=== PATIENT | female | born 1980 | race Caucasian/White ===

== ENCOUNTER → 2024-01-05 11:31 | Outpatient (REF) | payer OTHER, SELFPAY | LOC: WDC 11:31 | PROVIDERS: ATTENDING PHYSICIAN Internal Medicine | DX: Z12.31 Encounter for screening mammogram for malignant neoplasm of breast (principal) | CPT/HCPCS: 77063; 77067 ==

== ENCOUNTER 2024-07-18 22:56 | Day surgery (SDC) | payer OTHER, SELFPAY ==
[2024-07-18 15:58] VITALS: BP 127/86
[2024-07-18 16:17] LABS: % Basophils 0.4 % (0-2); % Eosinophils 0.7 % (0-6); % Immature Granulocytes 0.3 % (0-0.5); % Lymphocytes 21.5 % (20.5-51.1); % Neutrophils 68.1 % (42.2-75.2); Absolute Basophils 0.1 10^3/uL (0-0.2); Absolute Eosinophils 0.1 10^3/uL (0-0.7); Absolute Lymphocytes 2.6 10^3/uL (1.2-3.4); Absolute Monocytes 1.1 10^3/uL (0.1-0.6); Absolute Neutrophils 8.2 10^3/uL (1.4-6.5); Hematocrit 38.9 % (37.0-47.0); Hemoglobin 12.7 g/dL (12.0-16.0); Mean Corp Hgb Conc. 32.6 g/dL (33.0-37.0); Mean Corpuscular Hgb 29.4 pg (27.0-31.0); Mean Platelet Volume 10.3 fL (7.4-10.4); Nucleated Red Blood Cells % 0 %; Platelet Count 387 10^3/uL (130-400); Red Blood Cell Count 4.32 10^6/uL (4.20-5.40); Red Cell Dist. Width 12.6 % (11.5-14.5); White Blood Cell Count 12.1 10^3/uL (4.8-10.8)
[2024-07-18 16:19] LABS: Urine Albumin 2+ (Neg - Trace); Urine Bilirubin Negative (Negative); Urine Character Slightly Cloudy (Clear); Urine Color Amber; Urine Glucose Negative (Negative); Urine Ketone Negative (Negative); Urine Leukocyte 3+ (Negative); Urine Nitrite Negative (Negative); Urine Occult Blood Negative (Negative); Urine Urobilinogen 1+ (Neg - 1+)
[2024-07-18 16:30] LABS: HCG, Serum Qualitative Screen Negative
[2024-07-18 16:33] LABS: Urine Bacteria Moderate (Negative); Urine Red Blood Cell 0-2 /HPF (0-2); Urine Squamous Cell >30 /LPF (Few); Urine White Cell 30-40 /HPF (0-5)
[2024-07-18 16:38] LABS: ALT (SGPT) 15 U/L (0-35); AST (SGOT) 21 U/L (14-36); Alkaline Phosphatase 58 U/L (38-126); Blood Urea Nitrogen 20 mg/dl (7-17); Calcium 9.6 mg/dl (8.4-10.2); Carbon Dioxide 28 mmol/L (22-30); Chloride 109 mmol/L (98-107); Glucose 96 mg/dl (70-99); Lipase 93 U/L (23-300); Potassium 4.2 mmol/L (3.5-5.1); Sodium 144 mmol/L (135-145); Total Bilirubin 0.5 mg/dl (0.2-1.3); eGFR > 60.00
[2024-07-18 17:17] VITALS: BMI 23.5
--- NOTE | 2024-07-18 17:18 | ED.GENMED ---
History of Present Illness
<ROCHELLE Xavier - Last Filed: 07/19/24 00:19>
General
Chief Complaint: Abdominal Pain
Source: patient
Exam Limitations: none
Time Seen by Provider: 07/18/24 16:34
Nursing documentation reviewed up to this point in time: agreed with
History of Present Illness
History of Present Illness:
Patient is a 44-year-old female who presents to the ER for evaluation of abdominal pain. She reports she has felt bloated for the past several days and then pain increased on , 3 days ago. She felt lower abdominal discomfort. She was
urinating slightly more than normal but denied any burning with urination. She denied any fever or chills. She reports today however the pain settled in the right lower quadrant and has gotten increasingly worse. She has nauseous with this pain
but has not vomited. She denies any back pain. She continues to deny any urinary dysuria.
Review of Systems
<ROCHELLE Xavier - Last Filed: 07/19/24 00:19>
Review of Systems
Allergies reviewed?: Yes
Other source history: family
All Other Systems: ROS reviewed and negative except as documented in HPI and ROS
Constitutional: Reports no symptoms; Denies fever, fatigue or chills
Respiratory: Reports no symptoms
Cardiac: Reports no symptoms
ABD/GI: Reports nausea; Denies vomiting, diarrhea or constipated
: Reports frequency; Denies flank pain, urgency or discharge
Musculoskeletal: Reports no symptoms; Denies back pain
Skin: Reports no symptoms
Neurological: Reports no symptoms
Psychiatric: Reports no symptoms
Phy Exam
<ROCHELLE Xavier - Last Filed: 07/19/24 00:19>
General Physical Exam
General Presentation: no apparent distress
General age: appears stated age
General Skin: warm and dry
General Habitus: normal
General Mental: alert
General Hydration: appears well hydrated
Neurological Exam
Neurological Exam: alert and oriented x3
Musculoskeletal Exam
Musculoskeletal Exam: full ROM
Skin Exam
Skin Exam: normal color and warm/dry
Psychiatric Exam
Psychiatric Exam: normal mood/affect
Course
<ROCHELLE Xavier - Last Filed: 07/19/24 00:19>
Orders/Labs/Results
Orders:
Orders
07/18/24 16:02
Test Result ONCE
07/18/24 16:09
CA 125 Urgent
Comment: ADD ON
Complete Blood Count/With Diff Urgent
Comprehensive Metabolic Panel Urgent
HCG, Serum Qualitative Screen Urgent
Lipase Urgent
Urinalysis Reflex To Culture Urgent
Date Specimen was Collected: 07/18/24
Time Specimen was Collected: 16:02
Urine Microscopic Reflex Cult Urgent
Urine Culture Urgent
AMAN Source: U
Specimen Description:
Date Specimen was Collected: 07/18/24
Time Specimen was Collected: 16:02
07/18/24 17:13
0.9% Sodium Chloride 1000 ml [Nss] 1,000 ml IV BOLUS
07/18/24 17:14
Ketorolac [Toradol] 15 mg IV NOW STA
Ondansetron Injectable [Zofran] 4 mg IV NOW STA
US Pelvis Only (non-obstetric) Urgent
Comment:
Reason For Exam: rlq pain
07/18/24 17:18
CT Abd/pel W Iv And Oral Contr Urgent
Comment:
Reason For Exam: rlq pain
Iohexol [Omnipaque] See Protocol PO NOW STA
07/18/24 20:34
CefTRIAXone [Rocephin] 1,000 mg IV NOW STA
07/18/24 20:58
Morphine Sulfate 4 mg IV NOW STA
07/18/24 21:12
Sterile Water [Sterile Water For Injection] 10 ml .ROUTE .STK-MED ONE
07/18/24 21:31
Consult SENIOR ASSET MANAGER [SENIOR ASSET MANAGER CONSULT] Urgent
Consulting Provider: Tamie Hill
Was physician already notified: Yes
Reason for consult: pelvic mass
07/18/24 22:00
Flush (0.9% Sodium Chloride) [Flush (Nss)] See Dose Instructions IV PER PROTOCOL
07/18/24 22:06
Add On- LAB Urgent
Tests Added?: ca-125
07/18/24 22:22
Admit/Transfer Patient As Directed
Co-Sign Provider:
Level of Care: Observation services
Assign to:: Medical/Surgical
Physician / Group: Pankaj
Diagnosis: Adnexel Mass
07/18/24 22:23
PRN Pain Medication Management As Directed
May give lesser potent ordered pain med per pt: Yes
preference::
Protocol:: Medication orders for pain may be administered in a
manner that supports deferring to patient preference
when the pt is:
- Requesting an ordered lesser potent pain medication.
Least to most potent pain medications are defined
as: acetaminophen < NSAID < tramadol < opioids
(morphine, oxycodone, hydromorphone).
- Requesting a lesser dose of the same medication IF
ORDERED.
- Requesting a less intrusive route of administration
if both routes are prescribed by the provider (PO <
IV).
07/18/24 22:24
Code Status As Directed
Resuscitation Status: Full Code
Abnormal Lab Results
07/18/24
16:09
WBC 12.1 H 10^3/uL
(4.8-10.8)
MCHC 32.6 L g/dL
(33.0-37.0)
Absolute Neuts (auto) 8.2 H 10^3/uL
(1.4-6.5)
Absolute Monos (auto) 1.1 H 10^3/uL
(0.1-0.6)
Chloride 109 H mmol/L
(98-107)
BUN 20 H mg/dl
(7-17)
Leukocyte Esterase Rfl 3+ A
(Negative)
Urine WBC (Reflex) 30-40 A /HPF
(0-5)
Urine Bacteria (Reflex) Moderate A
(Negative)
Urine Albumin (Reflex) 2+ A
(Neg - Trace)
07/18/24 16:09
07/18/24 16:09
Vital Signs
Initial and Last Documented VS:
Initial Vital Signs
Temp Pulse Resp BP Pulse Ox
98.8 F 82 18 127/86 100
07/18/24 15:58 07/18/24 15:58 07/18/24 15:58 07/18/24 15:58 07/18/24 15:58
Last Documented Vital Signs
Temp Pulse Resp BP Pulse Ox
98.8 F 82 18 117/71 99
07/18/24 15:58 07/18/24 15:58 07/18/24 15:58 07/18/24 23:00 07/18/24 23:15
Buffing Wheel Former Machine consulted with Physician
Buffing Wheel Former Machine consulted with physician?: Yes
Name of Physician Consulted: swati
<Saulo Edge MD - Last Filed: 07/18/24 22:47>
Orders/Labs/Results
Orders:
Orders
07/18/24 16:02
Test Result ONCE
07/18/24 16:09
CA 125 Urgent
Comment: ADD ON
Complete Blood Count/With Diff Urgent
Comprehensive Metabolic Panel Urgent
HCG, Serum Qualitative Screen Urgent
Lipase Urgent
Urinalysis Reflex To Culture Urgent
Date Specimen was Collected: 07/18/24
Time Specimen was Collected: 16:02
Urine Microscopic Reflex Cult Urgent
Urine Culture Urgent
AMAN Source: U
Specimen Description:
Date Specimen was Collected: 07/18/24
Time Specimen was Collected: 16:02
07/18/24 17:13
0.9% Sodium Chloride 1000 ml [Nss] 1,000 ml IV BOLUS
07/18/24 17:14
Ketorolac [Toradol] 15 mg IV NOW STA
Ondansetron Injectable [Zofran] 4 mg IV NOW STA
US Pelvis Only (non-obstetric) Urgent
Comment:
Reason For Exam: rlq pain
07/18/24 17:18
CT Abd/pel W Iv And Oral Contr Urgent
Comment:
Reason For Exam: rlq pain
Iohexol [Omnipaque] See Protocol PO NOW STA
07/18/24 20:34
CefTRIAXone [Rocephin] 1,000 mg IV NOW STA
07/18/24 20:58
Morphine Sulfate 4 mg IV NOW STA
07/18/24 21:12
Sterile Water [Sterile Water For Injection] 10 ml .ROUTE .STK-MED ONE
07/18/24 21:31
Consult SENIOR ASSET MANAGER [SENIOR ASSET MANAGER CONSULT] Urgent
Consulting Provider: Tamie Hill
Was physician already notified: Yes
Reason for consult: pelvic mass
07/18/24 22:00
Flush (0.9% Sodium Chloride) [Flush (Nss)] See Dose Instructions IV PER PROTOCOL
07/18/24 22:06
Add On- LAB Urgent
Tests Added?: ca-125
07/18/24 22:22
Admit/Transfer Patient As Directed
Co-Sign Provider:
Level of Care: Observation services
Assign to:: Medical/Surgical
Physician / Group: Pankaj
Diagnosis: Adnexel Mass
07/18/24 22:23
PRN Pain Medication Management As Directed
May give lesser potent ordered pain med per pt: Yes
preference::
Protocol:: Medication orders for pain may be administered in a
manner that supports deferring to patient preference
when the pt is:
- Requesting an ordered lesser potent pain medication.
Least to most potent pain medications are defined
as: acetaminophen < NSAID < tramadol < opioids
(morphine, oxycodone, hydromorphone).
- Requesting a lesser dose of the same medication IF
ORDERED.
- Requesting a less intrusive route of administration
if both routes are prescribed by the provider (PO <
IV).
07/18/24 22:24
Code Status As Directed
Resuscitation Status: Full Code
Abnormal Lab Results
07/18/24
16:09
WBC 12.1 H 10^3/uL
(4.8-10.8)
MCHC 32.6 L g/dL
(33.0-37.0)
Absolute Neuts (auto) 8.2 H 10^3/uL
(1.4-6.5)
Absolute Monos (auto) 1.1 H 10^3/uL
(0.1-0.6)
Chloride 109 H mmol/L
(98-107)
BUN 20 H mg/dl
(7-17)
Leukocyte Esterase Rfl 3+ A
(Negative)
Urine WBC (Reflex) 30-40 A /HPF
(0-5)
Urine Bacteria (Reflex) Moderate A
(Negative)
Urine Albumin (Reflex) 2+ A
(Neg - Trace)
07/18/24 16:09
07/18/24 16:09
Vital Signs
Initial and Last Documented VS:
Initial Vital Signs
Temp Pulse Resp BP Pulse Ox
98.8 F 82 18 127/86 100
07/18/24 15:58 07/18/24 15:58 07/18/24 15:58 07/18/24 15:58 07/18/24 15:58
Last Documented Vital Signs
Temp Pulse Resp BP Pulse Ox
98.8 F 82 18 117/71 99
07/18/24 15:58 07/18/24 15:58 07/18/24 15:58 07/18/24 23:00 07/18/24 23:15
<ROCHELLE Xavier - Last Filed: 07/19/24 00:19>
MDM/Problems Addressed
Differential Diagnosis Includes:
Not limited to UTI, ovarian cyst, less likely ovarian torsion, appendicitis
MDM/Problems Addressed:
As documented patient is a 44-year female who complained of lower abdominal discomfort for the past several days which started on the right lower quadrant. Patient presents with pain in the right lower quadrant denies any fever or chills. On exam
she is tender in the right lower quadrant. She denies any UTI symptoms where she does have obvious 30-40 white blood cells in her urine. She denies any fevers or white count minimally elevated. Her kidney function and LFTs are normal. Ultrasound
of pelvis done and shows a solid-appearing mass in the right adnexa most likely of right ovarian origin both benign and malignant etiologies are possible there is small free fluid in the cul-de-sac MRI is recommended for additional evaluation; in
addition a CAT scan was ordered to rule out appendicitis which does show mild hepatomegaly and small volume ascites some of which is mildly complex again there is soft tissue density within the soft tissues of the true pelvis bilaterally right
greater than left which corresponds to finding ultrasound. This could represent bilateral ovarian masses. Case reviewed with ED physician will recommend admission for further evaluation, MRI and will order antibiotics for UTI
<ROCHELLE Xavier - Last Filed: 07/19/24 00:19>
*Radiology
Radiology exam reviewed: radiology read reviewed
*Pulse Oximetry
Patient hypoxic: no
*Critical Care Note
Total Time (30-74mins, 75-104mins- exclusive of procedures): Not Applicable
<ROCHELLE Xavier - Last Filed: 07/19/24 00:19>
Patient Management
Discussion with other providers: Loop Drier Operator (WASHING MACHINE MECHANIC DR Hill )
ED Attending Note
<ROCHELLE Xavier - Last Filed: 07/19/24 00:19>
-
Portions of this chart may have been created with voice recognition software.� Occasional wrong word or��sound alike� substitutions may have occurred due to the inherent limitations of voice recognition software.
<Saulo Edge MD - Last Filed: 07/18/24 22:47>
ED Attending Note
Patient seen and examined by attending physician: Yes
ED Attending Note:
I have seen and evaluated the patient with a [id number] encounter. I have spoken to the advance practicer provider and involved in the medical history, the physical exam, medical decision making.
Evaluation and management service: agree unless noted differently below.
Results interpretation: agree unless noted differently below.
Focused HPI: 44-year-old female with history as noted presents for evaluation of abdominal pain. Patient reports onset of symptoms 3 days ago they have been constant since that time and generally worsening. She reports initially some mild bloating
sensation now more distinct pain in the right lower quadrant. Associate with nausea no vomiting. She chronically has mild constipation but no acute change in bowel movements. She denies any urinary symptoms. Denies any vaginal bleeding. Denies
fevers or chills. She denies prior abdominal surgeries.
Physical exam: Awake alert not in distress. Vital signs normal. Abdomen soft, tender to palpation focally in the right lower quadrant.
Medical Decision Makin-year-old female presents for evaluation of right lower quadrant abdominal pain. Labs were significant for leukocytosis 12.1. CMP no clinically significant abnormality. hCG negative. Urinalysis appears contaminated and
in the absence of urinary symptoms lower suspicion for UTI. Pelvic ultrasound and CT abdomen pelvis performed�she has soft tissue density in the pelvis bilaterally right greater than left which could represent bilateral ovarian masses; appendix not
definitively visualized. Will plan to admit for further diagnostic workup�MRI recommended by radiology.
Discharge Plan
Departure
Patient Disposition: Admit
Date of Disposition: 07/18/24
Time of Disposition: 20:41
Admit to: Med/Surg
Admit to doctor: hospitalist
Presentation/result/management discussed w/ accepting MD/DO: Hospitalist
Patient with high blood pressure during this ER visit?: No
Condition: Fair
Covid-19: Not Applicable
Discharge Problem:
ovarian mass, UTI (urinary tract infection), Abdominal pain
Interventions
Interventions:
*Risk Screen - Suicide Last Done: 07/18/24 23:21
*General Assessment Last Done: 07/18/24 16:00
*Neglect/Abuse Screening Last Done: 07/18/24 23:21
*ED- Fall Risk Assessment Last Done: 07/18/24 17:36
*ED COVID-19 Vaccine History Last Done: 07/18/24 16:00
*Nursing Disposition Last Done: 07/19/24 00:19
AM-Ytffbm-Hddszzeqwq Assessment Last Done: 07/18/24 19:45
Discharge Date and Time
Discharge Date/Time: 07/19/24 00:19
[2024-07-18] MEDS: TORADOL 15 MG IV (17:26)
[2024-07-18] MEDS: ZOFRAN 4 MG IV (17:26)
[2024-07-18] MEDS: NSS 1000 IV (17:27)
[2024-07-18] MEDS: OMNIPAQUE 50 ML PO (17:31)
[2024-07-18 20:02] VITALS: BP 106/68
[2024-07-18] MEDS: MORPHINE SULFATE 4 MG IV (21:05)
[2024-07-18] MEDS: ROCEPHIN 1000 MG IV (21:07)
[2024-07-18 21:17] VITALS: BP 107/68
[2024-07-18 22:00] VITALS: BP 117/75
--- NOTE | 2024-07-18 22:27 | HPS.HSE ---
Addendum entered and electronically signed by Satnam Lira DO 07/18/24 23:39:
Patient seen and examined independently. Agree with findings and plan as set forth by Rosalinda Sanches PA-C.
Patient is a 44y F with PMH significant for scoliosis s/p lumbar fusion who presents to ED complaining of lower abdominal pain x 3-4 days. Patient states that pain initially started in the umbilical area. It has increased in intensity since
that time and migrated now to the RLQ area. Pateint reports waking in sweats and chills each of the past 3 nights. No noted fever. No N/V/D. No urinary complaints. Her menses have been regular. No vaginal discharge.
Ass:
RLQ Abdominal Pain
R Ovarian Lesion
Anxiety / Depression
Scoliosis s/p Lumbar Fusion
Plan:
Observe overnight for further evaluation.
History and exam are highly suggestive of appendicitis and note that appendix is not visualized on US or CT.
Will cover with IV abx for now.
NPO, pain control / supportive care.
CT / US aleman show R > L ovarian abnormality. R seems c/w solid / soft tissue density - ? dermoid.
Appreciate HUMAN SERVICE WORKER input.
MRI in AM for further evaluation.
Surgery consult if appendicitis suspected / confirmed based on MRI results.
Original Note:
Family Physician
-
Family Physician: Carlita Guadarrama
Chief Complaint
-
Abdominal Pain
History of Present Illness
Patient is a 44 y/o female past medical history of anxiety who presents with abdominal pain and bloating. Patient reports worsening abdominal pain over the last several days which was periumbilical initially but now localizing to the right lower
quadrant. Patient notes lower abdominal bloating. She reports worsening nausea but no vomiting, and denies diarrhea. She denies recorded fevers, but admits to night sweats/chills the past two days. She denies dysuria. She denies abnormal vaginal
discharge.
Medical History
Past Medical History
Past Medical History: Reports Other
Additional Past Medical History:
Anxiety
Scoliosis
Past Surgical History: Reports Other
Additional Past Surgical History:
L1-S1 Anterior / Posterior Fusion
Social History
Tobacco: Non-smoker
Alcohol: Occasional
Family History
Family History: Not pertinent
Allergies / Home Medications
Allergies reflects when Allergies were last updated in [facility].
Home Medications with original date entered in [facility]
Allergy/Medication List:
Allergies
Allergy/AdvReac Type Severity Reaction Status Date / Time
No Known Allergies Allergy Unverified 07/18/24 15:59
Home Medications
bupropion HCl 150 mg 24 hr tablet, extended release (Wellbutrin XL) 300 mg PO DAILY 07/18/24
Review of Systems
-
History Source: Patient
A 12 point ROS was completed and negative except as noted: Yes
Constitutional: Reports Night Sweats and Chills; Denies Fever
Respiratory: Denies Cough or Trouble Breathing
Cardiac: Denies Chest Pain or Palpitations
Abdomen/GI: Reports Abdominal Pain, Nausea and Constipated; Denies Vomiting or Diarrhea
: Denies Dysuria
Physical Exam
Vital Signs
Vital Signs
Temp Pulse Resp BP Pulse Ox
98.8 F 82 18 127/86 100
07/18/24 15:58 07/18/24 15:58 07/18/24 15:58 07/18/24 15:58 07/18/24 15:58
Physical Exam
General: Comfortable and Conversant
HEENT: Anicteric and Moist mucous membranes
Respiratory: Clear and Non Labored Respirations
Cardiac: S1/S2 and Regular Rhythm
GI: Soft, Tender (Right lower quadrant) and Distended (Notable fullness on palpation of the bilateral lower quadrants, right greater than left)
Rectal: Deferred by Provider
Genito-urinary: Clear Urine
Musculoskeletal: No Clubbing and No Cyanosis
Skin: Warm and Dry
Neuro: Awake, Alert, Oriented and Nonfocal/grossly intact
Psych: Calm
Laboratory Results
-
07/18/24 16:09
07/18/24 16:09
Laboratory Results
Total Bilirubin 0.5 mg/dl (0.2-1.3) 07/18/24 16:09
AST 21 U/L (14-36) 07/18/24 16:09
ALT 15 U/L (0-35) 07/18/24 16:09
Alkaline Phosphatase 58 U/L (38-126) 07/18/24 16:09
Lipase 93 U/L (23-300) 07/18/24 16:09
Data Reviewed
-
CT Scan: Report Reviewed by me
Ultrasound: Report Reviewed by me
Lab Data: Labs Reviewed by me
Impression/Plan
-
Abdominal Pain
-History raises concern for possible appendicitis
-CT scan and Abd US reveal right adnexal mass, but appendix was not identified on the CT scan
-Continue Unasyn given infectious symptoms
-Consult Gynecology
-Check Pelvic MRI
-Check CA-125
Anxiety
-Continue Wellbutrin
DVT proph: SCDs
Code Status: Full Code
[2024-07-18 23:00] VITALS: BP 117/71
--- NOTE | 2024-07-18 23:31 | CON.MD ---
Consultation - Medical
-
44 yo comes into ER for abd pain. Started on Friday. Started at umbilicus andtraveled to RLQ and R hip. No temp at home but has been having night sweats and chills last few nights. WBC = 12.1. LMP 06/28/24 BC = vasectomy - preg test in
ER negative. No VB - no vag d/c - no dysuria.
Imaging shows a RLQ mass poss ovary but cannot r/o appy issue - MRI planned and Ca-125 pending.
All NKDA
Meds - Welbutrin
POBH - - NVD x 2 - youngest is 10 - no recent pelvic imaging
P JAVASCRIPT PROGRAMMER H - no abnl pap
PE - 98.8 - 82 - 18 - 127/86
Lungs - clear
CV - RRR
Back noCVAT
Abd - soft + RLQ tenderness + BS - no rebound or gurading
Pelvic - EG - WNL
Cervix - palp nomral
BME - RV uterus - no CMT - pt states always has been RV
Adnexa - + tender to palp on Right - cannot palp ovaries due ot RV uterus
Labs - HCG neg - Ca125 pending - wbc mildly elevae at 12.1
u/s and CT scan show 'soft tissue' density in RLQ - ovary vs appy
Asses - RLQ mass ovary vs appy
Plan MRI tomorrow
CA-125 pending
IV antibiotics per hospitalist
IF adnexal mass, pt may be able to be d/c ad f/u with her JAVASCRIPT PROGRAMMER at [facility] - [facility]
-
See full dictated report
[2024-07-19 00:25] VITALS: BP 105/64; BMI 23.5
[2024-07-19] MEDS: UNASYN IV ×2 (01:10→06:03)
[2024-07-19] MEDS: D5/0.9% SODIUM CHLORIDE IV ×2 (01:47→12:50)
[2024-07-19] MEDS: TORADOL 15 MG IV ×2 (01:48→11:14)
[2024-07-19] MEDS: D5/0.9% SODIUM CHLORIDE 1000 IV (01:57)
--- NOTE | 2024-07-19 06:01 | W.PN.GYN.DG ---
Today's Communication / Plan
-
Await ca-125 and MRI
Pt SHANK MAKER is a [facility] Jason Gerard
If MRI suspicious for Dermoid or other SHANK MAKER source, I will contact her SHANK MAKER for planning and f/u
Assessment / Plan
-
Assessment: RLQ pain
Imaging R adnexal mass - poss dermoid or source or poss appy issue
Plan:
Await ca-125 and MRI
Pt SHANK MAKER is a [facility] Jason Gerard
If MRI suspicious for Dermoid or other SHANK MAKER source, I will contact her SHANK MAKER for planning and f/u
Subjective / Objective Data
Subjective Data
Pt cont to have RLQ pain - not better - not worse - pt can tell when pain meds wear off
Objective Data
Vital Signs
Temp Pulse Resp BP Pulse Ox
98.3 F 86 16 105/64 98
07/19/24 00:25 07/19/24 00:25 07/19/24 00:25 07/19/24 00:25 07/19/24 00:25
Physical Exam
-
Abdomen: Soft and Tender (+ RLQ tenderness to palp - no rebound - no guarding)
Data Reviewed
-
Urine Color Deana 07/18/24 16:09
Urine Clarity Slightly cloudy (Clear) 07/18/24 16:09
Urine pH 6.0 (5.0-9.0) 07/18/24 16:09
Ur Specific Pe Ell 1.030 (<1.030) 07/18/24 16:09
Urine Ketones Negative (Negative) 07/18/24 16:09
Urine Bilirubin Negative (Negative) 07/18/24 16:09
Urine Urobilinogen 1+ (Neg - 1+) 07/18/24 16:09
[2024-07-19] MEDS: MORPHINE SULFATE 2 MG IV (06:06)
[2024-07-19 08:11] LABS: Hematocrit 31.7 % (37.0-47.0); Hemoglobin 10.3 g/dL (12.0-16.0); Mean Corp Hgb Conc. 32.5 g/dL (33.0-37.0); Mean Corpuscular Hgb 29.9 pg (27.0-31.0); Mean Corpuscular Volume 92.2 fL (81.0-99.0); Mean Platelet Volume 10.8 fL (7.4-10.4); Platelet Count 287 10^3/uL (130-400); Red Blood Cell Count 3.44 10^6/uL (4.20-5.40); White Blood Cell Count 8.5 10^3/uL (4.8-10.8)
[2024-07-19 08:12] LABS: Blood Urea Nitrogen 17 mg/dl (7-17); Calcium 8.1 mg/dl (8.4-10.2); Carbon Dioxide 24 mmol/L (22-30); Chloride 111 mmol/L (98-107); Estimated Creatinine Clearance 83 ml/min; Glucose 91 mg/dl (70-99); Potassium 4.1 mmol/L (3.5-5.1); Sodium 143 mmol/L (135-145); eGFR > 60.00
--- NOTE | 2024-07-19 08:21 | W.PN.HOSP.TC ---
Today's Communication/Plan
-
Oncology LEAD GENERATOR consult. Pain control
Assessment / Plan
Assessment / Plan
Physical exam:
General: Acutely ill
HEENT: Normocephalic, Atraumatic and Moist Mucous Membranes
Respiratory: Clear to Auscultation; Negative Wheezes, Rales or Rhonchi
Cardiac: Regular Rhythm and S1/S2
GI: Soft, very tender diffusely and mainly right lower quadrant and distended
Musculoskeletal: No Clubbing, No Cyanosis and No Edema
Neuro: Awake, Alert and Oriented, no neurological deficits
Psych: Anxious
A/P:
Abdominal pain due to ovarian masses (right ovarian mass and hemorrhagic cyst in the left ovary), peritoneal carcinomatosis, and ascites, likely malignant:
Reviewed pelvic MRI findings
Start clear liquid diet
Stop IV fluids and IV antibiotics
Adjust pain medications-add oral oxycodone, continue IV morphine, and add bowel regimen
LEAD GENERATOR oncology consulted-discussed via [place] text today
Left message to her outpatient LEAD GENERATOR but no call back yet.
Oncology consult as requested by LEAD GENERATOR-discussed with oncology today
Ca-125 pending
Discussed with at bedside
Leukocytosis:
Likely reactive
Anemia:
Monitor hemoglobin closely
Anxiety
Continue Wellbutrin
DVT prophylaxis:
SCDs
Code Status:
Full Code
Total time spent on today's encounter was 52 minutes which included time spent in counseling the patient/family regarding diagnosis and treatment plan as listed above, goals of care, and symptom management. Case was discussed with nursing staff,
specialists, and care coordinators/case management. All labs and imaging personally reviewed by me. Remainder the time spent in detailed review of previous records, lab data, imaging, and other medical provider documentation.
Anticipated Discharge: 24 - 48 hours
Subjective/Interval History
-
Date of Service: July 19, 2024
Patient still having significant right lower quadrant abdominal pain. Afebrile.
Objective Data
-
Labs:
Laboratory Results
07/19/24
06:40
WBC 8.5
Hgb 10.3 L
Hct 31.7 L
Plt Count 287 D
Sodium 143
Potassium 4.1
Chloride 111 H
Carbon Dioxide 24
BUN 17
Creatinine 0.8
Glucose 91
Calcium 8.1 L D
Vital Signs:
Vital Signs
Temp Pulse Resp BP Pulse Ox
98.3 F 86 16 105/64 98
07/19/24 00:25 07/19/24 00:25 07/19/24 00:25 07/19/24 00:25 07/19/24 00:25
[2024-07-19 08:45] VITALS: BP 105/69
--- NOTE | 2024-07-19 10:30 | CM ---
Patient off the flr, spoke w/ spouse, initial assessment completed. Patient is a 44 y/o female past medical history of anxiety who presents with abdominal pain and bloating.
Patient resides w/ spouse and 2 sons [place]- 2 steps to enter. Independent w/ walking and ADLs, no DME identified. No SNF/HC hx reported. OP therapy in the past.
Address, point of contact and insurance verified
PCP: Carlita Guadarrama
[facility]
Patient is currently admitted obs. [facility] form verbally reviewed w/ spouse, copy provided, copy in chart
Plan: Home, no needs
[2024-07-19] MEDS: ZOFRAN 4 MG IV ×2 (11:14→23:28)
[2024-07-19] MEDS: WELLBUTRIN XL (24 hour extended release) 300 MG PO (11:14)
[2024-07-19] MEDS: TYLENOL 650 MG PO (14:44)
[2024-07-19 15:16] VITALS: BP 114/74
--- NOTE | 2024-07-19 16:57 | W.CON.GYNONC ---
Chief Complaint
-
lower abdominal pain, Pelvic masses
History of Present Illness
The patient is a 44-year-old woman, 3, para 2, comes into the emergency room for abdominal pain. This pain started on Friday at her umbilicus. Over time it traveled to her right lower quadrant and right hip. She states she has had no
temperature at home. However, she has been having night sweats the last couple of nights with chills in the middle of the night. Her last menstrual period was 06/29/2024 and was normal. Her
control is vasectomy. She is having no problems with vaginal bleeding, vaginal discharge, or dysuria. She was seen by her Night Manager in May 2024.had normal exam. she and her were at [place] but she had pain and nausea and her
brought her back here to [place], where she had her car at [facility].
Her urine test in the emergency room today was negative.
Her imaging shows a 10 x 5 x 5 cm uterus with an 8 mm endometrial stripe. There is a 2 cm posterior fibroid. The left ovary is normal measuring 5 x 3 x 3 cm with positive flow. The right ovary measures 8 x 6 x 5 cm with a possible solid area mass
in the ovary. There is positive flow to that ovary also. Benign versus malignant mass was discussed. Also, possibility of dermoid was mentioned in the ultrasound report. MRI was recommended.
CT scan A/P and MRI pelvis is done, results are noted below
CA 125 =400
HCG negative
PAST MEDICAL HISTORY: Anxiety.post cardiomyopathy
PAST SURGICAL HISTORY:
1. Tonsillectomy.
2. Anterior-posterior spinal fusion for scoliosis.(14 hr procedure at [facility])
ALLERGIES: None.
MEDICATIONS: Wellbutrin.
SOCIAL HISTORY: Patient is a nonsmoker. 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
FAMILY HISTORY: No WIRE WEB WORKER cancer, but history of breast cancer in her maternal aunt.
PAST OB HISTORY: 3, para 2, with 2 previous normal vaginal deliveries.
PAST WIRE WEB WORKER HISTORY: No history of abnormal Pap smears and control is vasectomy.
Medical History
Allergies
Allergies reflect when allergies were last updated in [facility].
No Known Allergies Allergy (Unverified 07/18/24 15:59)
Physical Exam
Vital Signs / I&O
Vitals
Temp Pulse Resp BP Pulse Ox
98.7 F 82 16 114/74 97
07/19/24 15:16 07/19/24 15:16 07/19/24 15:16 07/19/24 15:16 07/19/24 15:16
Physical Exam
General: Well Developed, Well Nourished and No Apparent Distress
HEENT: Normocephalic and Moist Mucous Membranes
Respiratory: Clear, Wheezes and Non Labored Respirations
Cardiac: S1/S2 and Regular Rhythm
Breast: Deferred by me
GI: Soft, Non Distended, Normal Bowel Sounds and Tender (lower abdomen, R greater than left)
Genito-urinary: No Costovertebral Tend
External Genitalia: Normal Urethra
Vagina: Normal Mucosa
Cervix: Normal and No Lesion Seen
Uterus: Normal
Adnexa: Abnormal and Other (bilateral adnexal masses present, )
Rectal: Normal Mucosa and Other (nodule appreciated in posterior cul de sac)
Musculoskeletal: No Clubbing, No Cyanosis and No Edema
Hematologic/Lymphatic: No Lymphadenopathy
Psych: Calm and Intact Judgement
Results
-
07/19/24 06:40
07/19/24 06:40
Diagnostic Imaging Report
SignedOrder #:[id number]
Exams: CT Abd/pel W Iv And Oral Contr
PROCEDURES: CT Abd/pel W Iv And Oral Contr
CLINICAL INDICATION: rlq pain
TECHNIQUE: Axial images through the abdomen and pelvis following oral contrast and intravenous nonionic contrast administration with coronal and sagittal reformations. Automated dose reduction technique was utilized for this exam.
COMPARISON: June 07, 2009. Pelvic ultrasound same day.
FINDINGS:
Lower Chest: Some mild dependent subsegmental atelectasis, right lung base greater than left. No pleural effusion.
Abdomen:
Liver: Enlarged at 20 cm, homogeneous.
Bile Ducts: Within normal limits.
Gallbladder: Within normal limits.
Pancreas: Within normal limits.
Spleen: Within normal limits.
Adrenals: Within normal limits.
Kidneys/Ureters: Symmetric excretion.
Bowel: Limited without oral contrast opacification of entire large bowel and also limited by marked paucity of intra-abdominal/pelvic fat. Moderate volume colonic stool no intestinal obstruction. Although the appendix is not discretely identified,
portion of the posterior right lower quadrant limited by some soft tissue density in the right true pelvis.
Peritoneum: No free air. Small volume free fluid, portion of which is slightly high attenuation density.
True pelvis: Heterogeneous predominantly low-attenuation 'soft tissue' density in the right true pelvis greater than left likely corresponding with the heterogeneous predominantly solid-appearing density seen on concurrent pelvic ultrasound. Seen on
image 67 series 301 there is a simple appearing cyst in the left true pelvis likely ovarian. Small volume dependent free fluid.
Bladder: Incompletely opacified and incompletely distended, limited, likely with mild relative diffuse wall thickening due to underdistention.
Vessels and retroperitoneum: Abdominal aorta normal in caliber. Retroperitoneum significantly obscured by beam hardening artifact from metal hardware throughout the lumbar spine.
Bones: Marked beam hardening artifact from extensive metal hardware throughout the lumbar spine.
IMPRESSION:
Mild hepatomegaly.
Small volume ascites, some of which is mildly complex.
Marked heterogeneous predominantly 'soft tissue' density within the soft tissues of the true pelvis bilaterally, right greater than left at least a portion of which likely corresponds with findings on concurrent Pelvic ultrasound which could
represent bilateral ovarian masses. Heterogeneous soft tissue density extends on the right into the right lower quadrant. Unfortunately, as the appendix is not discretely identified, involvement of the appendix cannot be excluded and, therefore,
acute appendicitis cannot be excluded. 1.7 cm simple cyst in the left true pelvis.

Magnetic Resonance Imaging Rpt
SignedOrder #:[id number]
Exams: MR Pelvis W/o & With Contrast
MR Pelvis W/o  With Contrast: 07/19/2024 10:00 AM
INDICATION: 44 years old Female. abdominal pain, adnexel mass.
COMPARISON: CT abdomen/pelvis and ultrasound pelvis 07/18/2024.
TECHNIQUE: Multiplanar multisequence MR imaging of the pelvis was performed before and after intravenous administration of gadolinium contrast agent.
FINDINGS:
UTERUS:
Orientation: Anteverted.
Masses: None.
Endometrium: mm.
Junctional zone: Unremarkable.
Cervix: There are incidental nabothian cysts present.
RIGHT OVARY: Heterogeneous avidly enhancing mass measuring approximately 5.9 x 6.5 x 5.6 cm.
LEFT OVARY: Heterogeneous avidly enhancing mass measuring approximately 3.2 x 3.0 x 2.5 cm. 2.7 cm hemorrhagic cyst.
There is marked thickening and enhancement of the peritoneal lining within the posterior pelvis. Additional probable peritoneal implant in the right lower abdominal quadrant paracolic gutter region measuring 2.7 x 2.0 cm. Small peritoneal implants
in the left lower quadrant as well.
FREE FLUID: Moderate volume ascites in the pelvis and lower abdomen, progressed.
URINARY BLADDER: Unremarkable.
BOWEL: Visualized bowel unremarkable.
LYMPH NODES: Unremarkable.
MUSCULOSKELETAL: No suspicious osseous abnormality.
IMPRESSION:
Enhancing bilateral ovarian masses as described, highly suspicious for malignancy such as metastases or bilateral primary ovarian tumors such as serous or mucinous cystadenocarcinomas.
Findings suggestive of adjacent peritoneal carcinomatosis.
Moderate volume probable malignant ascites in the pelvis and lower abdomen.
Electronically signed by Gonzalo Erica, 07/19/2024 11:12 AM
Impression / Plan
-
44 yo woman with lower abdominal pain, bilateral complex adnexal masses, peritoneal implants in pelvis, very mild ascites, inflammatory changes noted in abdomen. elevated CA 125. appendicitis cannot be ruled out but there is suspicion for
carcinomatosis/ovary ca.
-get cardiology eval, chceck ECHO pre op, has a post cardiomyopathy history
-I reached out to Dr brown, he advised to start Zosyn, will see her and assess for appy even though we doubt it
-I think she has bilateral complex masses of ovary, i am concerned about neoplastic changes, I will proposes a laparoscopy with sampling of ascites, and examination and assessment of abdomen to decide next steps. she understands algorithm for
treatment of ovary cancer to include assessment for primary debulking surgery vs NCT followeed by interval debulking surgery.
-she understands procedure would be diagnostic, and we will need to postpone actual treatment to later time if primary surgery is identified to be the right approach
start Zosyn, for possible infection of appendix (Dr Brown recommended)
added to OR schedule in am
NPO after MN
additional tumor markers added
Kirit Paul MD
Night Manager Oncology
[facility]
[phone]
[2024-07-19 18:20] LABS: CA 125 400 U/mL (0-35)
[2024-07-19] MEDS: COLACE 100 MG PO (19:47)
[2024-07-19] MEDS: ROXICODONE 5 MG PO (19:47)
[2024-07-19] MEDS: ZOSYN 50 IV (23:23)
[2024-07-19 23:47] VITALS: BP 101/65
[2024-07-20] VITALS (14 sets, daily range): BP systolic 94–121; BP diastolic 59–82
[2024-07-20] MEDS: ZOSYN 50 IV ×2 (06:01→12:11)
[2024-07-20] MEDS: ZOFRAN 4 MG IV ×2 (06:06→12:12)
[2024-07-20] MEDS: ROXICODONE 5 MG PO ×2 (06:06→12:11)
--- NOTE | 2024-07-20 06:43 | W.PN.GYN.DG ---
Today's Communication / Plan
-
Pt had genetic screening done via [facility]
Will try to get those results - she has not gotten them yet - was supposed to meet on
Assessment / Plan
-
Assessment:
Pelvic mass with ascites - poss ovarian primary
LPS planned
Plan:
Pt had genetic screening done via [facility]
Will try to get those results - she has not gotten them yet - was supposed to meet on
Subjective / Objective Data
Subjective Data
Pt preparing for LPS today - NPO - unsure of timing for surgery
Objective Data
Vital Signs
Temp Pulse Resp BP Pulse Ox
98.7 F 87 18 101/65 100
07/19/24 23:47 07/19/24 23:47 07/19/24 23:47 07/19/24 23:47 07/19/24 23:47
Intake & Output
07/18/24 07/19/24 07/20/24
06:59 06:59 06:59
Intake Total 940 / 940
Balance 940 / 940
Intake:
Oral fluids 840 / 840
IV piggybacks 100 / 100
Other:
Number of approximated MODERATE 1 4
amounts of urine
Data Reviewed
-
Urine Color Deana 07/18/24 16:09
Urine Clarity Slightly cloudy (Clear) 07/18/24 16:09
Urine pH 6.0 (5.0-9.0) 07/18/24 16:09
Ur Specific [place] 1.030 (<1.030) 07/18/24 16:09
Urine Ketones Negative (Negative) 07/18/24 16:09
Urine Bilirubin Negative (Negative) 07/18/24 16:09
Urine Urobilinogen 1+ (Neg - 1+) 07/18/24 16:09
[2024-07-20 07:23] LABS: % Basophils 0.5 % (0-2); % Eosinophils 0.8 % (0-6); % Immature Granulocytes 0.3 % (0-0.5); % Monocytes 8.1 % (1.7-9.3); % Neutrophils 74.3 % (42.2-75.2); Absolute Basophils 0.1 10^3/uL (0-0.2); Absolute Eosinophils 0.1 10^3/uL (0-0.7); Absolute Lymphocytes 1.5 10^3/uL (1.2-3.4); Absolute Monocytes 0.8 10^3/uL (0.1-0.6); Absolute Neutrophils 7.1 10^3/uL (1.4-6.5); Hematocrit 34.7 % (37.0-47.0); Hemoglobin 11.3 g/dL (12.0-16.0); Mean Corp Hgb Conc. 32.6 g/dL (33.0-37.0); Mean Corpuscular Hgb 29.6 pg (27.0-31.0); Mean Corpuscular Volume 90.8 fL (81.0-99.0); Mean Platelet Volume 10.7 fL (7.4-10.4); Nucleated Red Blood Cells % 0 %; Platelet Count 328 10^3/uL (130-400); Red Blood Cell Count 3.82 10^6/uL (4.20-5.40); Red Cell Dist. Width 12.7 % (11.5-14.5); White Blood Cell Count 9.6 10^3/uL (4.8-10.8)
--- NOTE | 2024-07-20 07:59 | W.PN.HOSP.TC ---
Today's Communication/Plan
-
Plan to go to the OR today.
Assessment / Plan
Assessment / Plan
Physical exam:
General: Acutely ill
HEENT: Normocephalic, Atraumatic and Moist Mucous Membranes
Respiratory: Clear to Auscultation; Negative Wheezes, Rales or Rhonchi
Cardiac: Regular Rhythm and S1/S2
GI: Soft, very tender diffusely and mainly right lower quadrant and distended
Musculoskeletal: No Clubbing, No Cyanosis and No Edema
Neuro: Awake, Alert and Oriented, no neurological deficits
Psych: Anxious
A/P:
Abdominal pain due to ovarian masses (right ovarian mass and hemorrhagic cyst in the left ovary), peritoneal carcinomatosis, and ascites, likely malignant. Cannot rule out appendicitis:
She will be taken to the OR today
Appreciated surgery evaluation and decision of appendectomy or not will be made intraoperative
Appreciated oncology SHEARING MACHINE FEEDER evaluation and plan to take her to the OR today.
Reviewed pelvic MRI findings
N.p.o.
Restarted on IV antibiotics
Ca-125 elevated at 400
Rest of tumor markers are pending
Discussed with at bedside yesterday
Preop eval:
EKG unremarkable
SHEARING MACHINE FEEDER oncology requested cardiology preop eval
She seems to be very low risk from my assessment although I understand she had a history of cardiomyopathy. She is currently euvolemic and chest pain-free and no contraindications to surgery.
Echocardiogram also overall unremarkable except for mild valvulopathy.
Leukocytosis:
Likely reactive
Anemia:
Monitor hemoglobin closely
Anxiety
Continue Wellbutrin when able to take oral
DVT prophylaxis:
SCDs
Code Status:
Full Code
Total time spent on today's encounter was 52 minutes which included time spent in counseling the patient/family regarding diagnosis and treatment plan as listed above, goals of care, and symptom management. Case was discussed with nursing staff,
specialists, and care coordinators/case management. All labs and imaging personally reviewed by me. Remainder the time spent in detailed review of previous records, lab data, imaging, and other medical provider documentation.
Anticipated Discharge: 24 - 48 hours
Subjective/Interval History
-
Date of Service: July 20, 2024
She is still having right lower quadrant abdominal pain. Also complains of nausea on and off. No chest pain or shortness of breath.
Objective Data
-
Labs:
Laboratory Results
07/20/24
06:54
WBC 9.6
Hgb 11.3 L
Hct 34.7 L
Plt Count 328
Sodium Pending
Potassium Pending
Chloride Pending
Carbon Dioxide Pending
BUN Pending
Creatinine Pending
Glucose Pending
Calcium Pending
Vital Signs:
Vital Signs
Temp Pulse Resp BP Pulse Ox
98.7 F 87 18 101/65 100
07/19/24 23:47 07/19/24 23:47 07/19/24 23:47 07/19/24 23:47 07/19/24 23:47
I&O
07/19/24 07/20/24 07/21/24
06:59 06:59 06:59
Intake Total 940 / 940
Balance 940 / 940
[2024-07-20] MEDS: WELLBUTRIN XL (24 hour extended release) 300 MG PO (08:00)
[2024-07-20] MEDS: MIRALAX PO (08:00)
[2024-07-20] MEDS: COLACE 100 MG PO (08:01)
[2024-07-20 08:05] LABS: Blood Urea Nitrogen 10 mg/dl (7-17); Calcium 8.5 mg/dl (8.4-10.2); Carbon Dioxide 28 mmol/L (22-30); Chloride 108 mmol/L (98-107); Estimated Creatinine Clearance 83 ml/min; Glucose 93 mg/dl (70-99); LDH 287 U/L (120-246); Potassium 4.2 mmol/L (3.5-5.1); Sodium 139 mmol/L (135-145); eGFR > 60.00
[2024-07-20] MEDS: TYLENOL 650 MG PO (08:08)
--- NOTE | 2024-07-20 08:16 | CON.GS ---
Medical History
-
Chief Complaint: Abdominal discomfort
History of Present Illness:
Patient is a 44 yo F with a PMH of anxiety and scoliosis c/b back pain s/p anterior and posterior spinal fusions at [facility]. Ms. Qiu presents with approximately 1 week of general bloating and RLQ discomfort. Ms. Qiu states that she was doing
well until approximately last Friday when she acutely developed severe bloating which progressed throughout the course of the week. She has some generalized discomfort in the RLQ. Symptoms have significantly worsened over the past 24 to 48
hours. Subjective chills and night sweats for the past several days. No fevers. No nausea or vomiting. No fluctuations from a GI standpoint including bloody stools or diarrhea. No urinary symptoms. No family history notable for GI or
gynecologic malignancies. No abnormal uterine bleeding. She is 3 para 2. LMP was 06/29/2024 and normal. Labs notable for a normalized WBC,, hCG negative, elevated CA125, other labs pending.
Past Medical History
Past Medical History: Psychiatric (Anxiety)
Past Surgical History: Other (Scoliosis s/p anterior and posterior spinal fusions)
Social History
Tobacco: Non-Smoker
Alcohol: Occasional
Drug: None
Personal:
Living: With Family
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
Family History
Family History: Reviewed & Noncontributory
Allergies / Home Medications
Allergy/AdvReac Type Severity Reaction Status Date / Time
No Known Allergies Allergy Unverified 07/18/24 15:59
�Medication �Instructions �Recorded �Confirmed �Type
bupropion HCl 150 mg 24 hr tablet, 300 mg PO DAILY Mental 07/18/24 07/18/24 History
extended release (Wellbutrin XL) Health/Anxiety
Review of Systems
-
A 10 point review of systems was completed, and was negative except as per HPI.
Physical Exam
Vital Signs
Temp Pulse Resp BP Pulse Ox
98.7 F 87 18 101/65 100
05/05/25 23:47 07/19/24 23:47 07/19/24 23:47 07/19/24 23:47 07/19/24 23:47
07/19/24 07/20/24 07/21/24
06:59 06:59 06:59
Actual Weight 65.998 kg
Body Mass Index (BMI) 23.5
Lab Results
07/20/24 06:54
07/20/24 06:54
WBC 9.6 10^3/uL (4.8-10.8) 07/20/24 06:54
Hgb 11.3 g/dL (12.0-16.0) L 07/20/24 06:54
Hct 34.7 % (37.0-47.0) L 07/20/24 06:54
Plt Count 328 10^3/uL (130-400) 07/20/24 06:54
Abs Immat Gran (auto) 0.0 10^3/uL (0-0.05) 07/20/24 06:54
Neutrophils % 74.3 % (42.2-75.2) 07/20/24 06:54
Physical Exam
General: Well Developed, Well Nourished and No Apparent Distress
HEENT: Normocephalic and Anicteric
Respiratory: Non Labored Respirations
Cardiac: Regular Rhythm
GI: Soft, Tender (Discomfort in epigastrium, RUQ, and RLQ), Distended (Mild, fullness in the RLQ), Incisions (Midline well-healed) and Other (No diffuse peritonitis)
Skin: Warm and Dry
Neuro: Nonfocal/Grossly Intact
Data Reviewed
-
CT Scan: Image Personally Visualized and interpreted and Report Reviewed by me
MRI: Report Reviewed by me
Labs: Labs Reviewed by me
Assessment / Plan
-
Patient is a 44 yo F p/w abdominal discomfort likely secondary to ovarian mass with potential peritoneal spread
Review of her CT scan demonstrates a normal-appearing appendix. Repeat MRI imaging of the pelvis does not comment or mention any evidence of appendicitis. Given her ovarian findings she has an alternative, and much more plausible, cause for her
symptoms. The natural history and pathophysiology of appendicitis was reviewed. We discussed the risks of appendicitis in the general population to around 8%. Risks of an appendectomy are around 1%. Options for management including no further
intervention versus possible appendectomy were considered and discussed. The pros and cons of both approaches was discussed. We discussed that either now or in the future there may be some clinical benefit in performing an appendectomy to
eliminate any potential diagnostic uncertainty in the future. However, as it stands now it does not appear as though her appendix is causing her symptoms and performing an appendectomy may complicate the timing her treatments going forward (should
she develop any postoperative complication).
Plans for a diagnostic laparoscopy with biopsies and peritoneal washings today with Dr. Giron. Will coordinate and evaluate her appendix operatively at that time. If any abnormalities found operatively would recommend an appendectomy. If her
appendix appears normal then will forego an appendectomy at this time. She will reconsider this option should she need potential surgery in the future. All questions answered.
-- Will coordinate operative eval of her appendix today during a diagnostic laparoscopy with biopsies and peritoneal washings today with Dr. Giron; appendectomy if abnormal, no intervention if normal.
[2024-07-20 08:18] LABS: FSH 3.2 mIU/ml
[2024-07-20 08:37] LABS: AFP Male/Tumor Marker 1.51 ng/ml
--- NOTE | 2024-07-20 10:40 | W.PN.GYNONC ---
Today's Communication
-
Cardiology consult
Echo
NPO
To OR for diagnostic laparoscopy, peritoneal biopsies, assessment for debulking of potential or suspected ovary ca and possible appendectomy if appendix inflamed
Impression / Plan
-
44 yo woman with lower abdominal pain, bilateral complex adnexal masses, peritoneal implants in pelvis, very mild ascites, inflammatory changes noted in abdomen. elevated CA 125. appendicitis cannot be ruled out but there is suspicion for
carcinomatosis/ovary ca.
AFVSS
Abdomen soft, distended, tympanic, tenderness in RLQ, no guarding or rigidity.
AFP, carcinoembryonic within normal limits, CA 19.9 pending, CA125 400, FSH 3.2, HCG (-)
Of note, pt mentioned that she has a history of heavy periods especially in the last 6 months. She she uses both a tampon and pad and changes them about every other hour for first 2 to 3 days a period. She endorses occasional pain with sexual
intercourse. This has been on and off over a longer period of time. She does have significant cramping during her periods however denies any nausea or vomiting associated with them. She has also had regular night sweats over the past few months
that she associated with perimenopause.She has had a 50lb weight loss over the past year, but intentional with diet, exercise and medication (metformin, naltrexone and B12 combo from [facility]). Reached goal weight in Feb around 140lbs and stopped meds,
but has lost 10lbs since then.
Plan:
--NPO
--OR today for laparoscopy - sampling of ascites and assessment of abdomen -she understands that this would be diagnostic and a later surgery may be required depending on underlying etiology
--Zosyn in case there is appendicitis as appendix not able to be visualized on imaging. Discussed with Dr. Brown and if appendicitis noted during laparoscopy then appendectomy will be done during procedure.
--Cardiology evaluation for preop clearance pending. History of cardiomyopathy. Recommend preop echo.
--Ca 19-9 pending
DVT SCD's
Full Code
NPO
Subjective / Interval History
-
Pt is feeling more nauseous than before. No vomiting. Continued ab pain localized to RLQ. Besides that a bit tired, but okay.
Objective Data
-
Lab Results:
07/20/24 06:54
07/20/24 06:54
Physical Exam
Vital Signs / I&O
Vitals
Temp Pulse Resp BP Pulse Ox
98.5 F 89 16 102/66 97
07/20/24 07:09 07/20/24 07:09 07/20/24 07:09 07/20/24 07:09 07/20/24 07:09
I&O
07/18/24 07/19/24 07/20/24 07/21/24
06:59 06:59 06:59 06:59
Intake Total 940 / 940
Balance 940 / 940
Physical Exam
General: No Apparent Distress
Respiratory: Non Labored Respirations
Cardiac: Regular Rhythm
GI: Tender (RLQ especially ), Distended and Other (Tympanic with percussion)
Skin: Warm and Dry
Neuro: AO x 3
Psych: Calm
--- NOTE | 2024-07-20 11:01 | CON.CAR ---
Addendum entered and electronically signed by Froy Marin MD 07/20/24 15:08:
I saw and examined the patient.
The Packing Room Worker's note was reviewed and I agree with the note.
Comment:
GEN: No distress, awake, Ox3
HEENT: supple, anicteric, mmm
LUNGS: CTA, no wheezes/rales
CV: Reg, S1/S2, no murmurs/gallop
ABD: soft, BS+, NT/ND
EXT: No edema
NEURO: Gross non-focal
SKIN: No rash
Plan:
She has a past medical history of peripartum cardiomyopathy in 2010 who presents with abdominal pain and possible ovarian mass. She will be having an exploratory laparotomy today. We are asked to evaluate her for preop evaluation.
She has no chest pains, shortness of breath, or unstable cardiac syndromes. Her EKG is normal.
Echocardiogram today with a preserved ejection fraction and no significant valve disease.
She is stable to proceed with surgery. She will be low risk.
Original Note:
Consultation
Consultation Request
Date/Time Consultation Requested: 07/19/24 at 2243
Date/Time Consultation Performed: 07/20/24 at 1130
Requesting Provider: Dr. Paul
Performing Provider: Dr. Marin
Reason for Consultation: Preoperative cardiovascular risk stratification, h/o CM
Medical History
-
History of Present Illness:
Patient came to the ER on Friday with abdominal pain and was admitted with right ovarian mass. Since admission patient has had additional imaging along with consultations from Web Services Architect, surgical oncology and general surgery. Patient might have
carcinomatosis and ovarian cancer given imaging findings and labs. Plan is for a diagnostic laparoscopy later today with biopsies and peritoneal washings. She might also require intervention on her appendix. Cardiology was asked to see patient for
preoperative cardiovascular risk stratification. Patient has a h/o CM in 2010. Patient reports a normal , but a prolonged vaginal delivery that started with induction and almost 48 hours later delivery. Patient was d/c'd to home
in normal timeframe and at home had progressive fatigue and edema resulting in a [facility] ER evaluation and treatment for acute HF at that time. Patient followed with [facility] and was diagnosed with CM and was briefly on Lasix, but EF improved and she then
had an uncomplicated in 2013 without recurrence of CM. Patient has not seen cardiology in years and is not taking any diuretics of CM meds. Patient exercises 4 times a week without chest pain, SOB, palpitations or syncope.
PMH:
h/o CM 2010 without recurrence on subsequent in 2013
h/o L1-S1 fusion for scoliosis
Past Medical History
Past Medical History: Other (in HPI)
Past Surgical History: Orthopedic (L1-S1 fusion) and Tonsilectomy
Social History
Tobacco: Non-Smoker
Alcohol: Occasional (monthly or less)
Drug: None
Personal:
Living: With Family
Family History
Family History: Other (mother and father with Afib, patient's father is having an ablation with Dr. Curtis 08/04/24)
Allergies / Home Medications
Allergy/AdvReac Type Severity Reaction Status Date / Time
No Known Allergies Allergy Unverified 07/18/24 15:59
�Medication �Instructions �Recorded �Confirmed �Type
bupropion HCl 150 mg 24 hr tablet, 300 mg PO DAILY Mental 07/18/24 07/18/24 History
extended release (Wellbutrin XL) Health/Anxiety
Review of Systems
-
History Source: Patient
All other systems: Negative unless noted
Physical Exam
Vital Signs
Temp Pulse Resp BP Pulse Ox
98.5 F 89 16 102/66 97
07/20/24 07:09 07/20/24 07:09 07/20/24 07:09 07/20/24 07:09 07/20/24 07:09
GEN: NAD. AAOx3
HEENT: EOMI, MMM
LUNGS: RA. CTA B/L, no wheeze
CV: Reg, S1/S2, no murmur
ABD: soft, BS+, NT, mildly distended
EXT: No clubbing, cyanosis, lesions or edema B/L
NEURO: Gross non-focal
SKIN: Warm, dry and pink. No rash
Lab Results
07/20/24 06:54
07/20/24 06:54
Impression / Plan
-
PCP: Dr. Carlita Guadarrama
Card: [facility]
Impression:
Admitted with abdominal pain and new right ovarian mass 07/18/24
Possible carcinomatosis/ovarian cancer
B/L adnexal masses, peritoneal implants in the pelvis, ascites, inflammatory changes and elevated CA125
Possible appendicitis
h/o CM 2010 without recurrence on subsequent in 2013
h/o L1-S1 fusion for scoliosis
Echo 07/20/2024: EF 55 to 60%, normal RV size and function, mild MR, mild TR with PAP 25 mmHg
Plan:
-Patient came to the ER on Friday with abdominal pain and was admitted with right ovarian mass. Since admission patient has had additional imaging along with consultations from Web Services Architect, surgical oncology and general surgery. Patient might have
carcinomatosis and ovarian cancer given imaging findings and labs. Plan is for a diagnostic laparoscopy later today with biopsies and peritoneal washings. She might also require intervention on her appendix. Cardiology was asked to see patient for
preoperative cardiovascular risk stratification. Patient has a h/o CM in 2010. Patient reports a normal , but a prolonged vaginal delivery that started with induction and almost 48 hours later delivery. Patient was d/c'd to home
in normal timeframe and at home had progressive fatigue and edema resulting in a [facility] ER evaluation and treatment for acute HF at that time. Patient followed with [facility] and was diagnosed with CM and was briefly on Lasix, but EF improved and she then
had an uncomplicated in 2013 without recurrence of CM. Patient has not seen cardiology in years and is not taking any diuretics of CM meds. Patient exercises 4 times a week without chest pain, SOB, palpitations or syncope.
-ECG reviewed by me is SR without ischemic changes.
-Echo report reviewed and summarized as above by me. EF is preserved and no significant valve disease.
-Patient exercises 4 times a week without chest pain or SOB. No resting chest pain or SOB. No palpitations. No edema.
-Patient is optimized from a cardiac standpoint.
[2024-07-20] MEDS: FLUSH (NSS) 3 FLUSH IV (12:11)
--- NOTE | 2024-07-20 18:34 | OR.RPT ---
Operative Report
Operative Report
Date of procedure: July 20, 2024
Preoperative diagnosis: Bilateral ovarian masses ascites elevated CA125
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
Surgeon:Kirit Paul MD
Assist: Claudia Thompson PA-C
Procedure: Robotic assisted laparoscopic exploration of the abdomen, peritoneal biopsies including right diaphragm, right lower quadrant and cecal mass, omental biopsies, aspiration of ascites, dilation and curettage
Anesthesia: General Endotracheal intubation
Estimated blood loss: 20 cc
Complication: None
Specimen: Endometrial curetting, ascites for cytology, right lower quadrant peritoneum frozen section indicating malignant neoplasm high-grade serous carcinoma, cecal mass biopsy, omental biopsy
Intraoperative findings: There is approximately 700 cc ascites, there is extensive evidence of peritoneal implants involving the right diaphragm that extends into posterior aspects of the diaphragm, there is less since tensive evidence of peritoneal
implants on the left diaphragm there is evidence of peritoneal implants in Morison's pouch, 3 cm tumor nodule present on the cecum, 0.5 cm tumor nodule present on tip of appendix, extensive omental caking is present. There is carcinomatosis
involving cele hepatis and extending into the root of the mesentery. Bilateral tubes and ovaries are noted with tumor implants undersurface as well as posterior aspect of the serosa of the uterus. The entire posterior cul-de-sac is coated.
Multiple tumor implants.
Procedure in detail this patient was taken to the operating room and placed in supine position, general anesthesia was administered she was intubated without any difficulty. She was placed in lithotomy position using yellowfin stirrups and prepped
in the abdomen perineum and vagina. Her arms were wrapped in foam and placed along the patient's side. We ensured that there was no extra pressure on any joints including upper and lower extremities. The patient was prepped on the abdomen as well
as perineum and vagina and upper thighs. She was draped. Timeout procedure was carried out she received 2 g of Ancef for prophylaxis as well as 5000 units of heparin subcutaneous injection. Luis catheter was placed for drainage of the bladder.
Speculum was placed in the vagina and anterior lip of the cervix was grasped with single-tooth tenaculum. Cervical canal was dilated uterus sounded to 8 cm and is anteverted. Sharp curettage of the endometrium was performed and specimen [facility] was
sent to pathology. Uterine manipulator under sheriff type with 3.5 cm ALINA ring was placed in the uterine cavity. Next attention was turned to the abdomen and Veress needle was inserted just below the left subcostal margin and the peritoneal cavity
was insufflated with CO2 gas up to pressure of 15 mmHg. 8 mm X Xi robotic port was introduced in the left upper quadrant. Another 8 mm X Xi robotic port was introduced 25 cm cephalad to symphysis pubis in the midline 2 additional excised robotic
ports were placed on the right upper quadrant and right lateral abdomen. Initially biopsy of right diaphragm was performed. Ascites was drained from right subdiaphragmatic space as well as pelvis and was submitted to cytology. I took down the
omental adhesion to the anterior abdominal wall. Tumor implant in the right lower quadrant peritoneum was removed and submitted to pathology. Tumor nodule in the cecum was biopsied and submitted to pathology. We went ahead and took a piece of
omentum and also removed that and submitted that to pathology. I explored the pelvis and examined the posterior cul-de-sac with the findings noted above.
Frozen section of the right lower quadrant revealed the presence of malignant neoplasm high-grade serous carcinoma. At this point all laparoscopic ports were removed. The incision in the right lower quadrant was sutured with 3-0 nylon to prevent
leakage of ascites. Skin incisions were closed with 4-0 Monocryl otherwise.
In my in my view this patient has extensive carcinomatosis and has a high Fagoti score at 10, I do not recommend primary surgical debulking and she needs to undergo neoadjuvant chemotherapy with plan for interval cytoreduction in approximately 12 to
14 weeks. Counts of laps instruments and needle was correct x 2 I was present and scrubbed for entire procedure as dictated above
Disposition: To PACU stable awake and extubated
[2024-07-20] MEDS: ZOSYN IV (20:22)
[2024-07-20] MEDS: COLACE PO (21:29)
[2024-07-20] MEDS: MORPHINE SULFATE 2 MG IV (21:31)
[2024-07-21 03:00] VITALS: BP 100/58
[2024-07-21] MEDS: MORPHINE SULFATE 2 MG IV ×2 (03:40→07:41)
--- NOTE | 2024-07-21 05:22 | PTCARENOTE ---
Patient unable to urinate last night. Bladder scanned twice during shift for over +600. Straight cathed at beginning of shift for 700. Messaged SLITTING AND SHIPPING SUPERVISOR for Luis Catheter order. Luis placed at 05:00 for 600. Patient reports lightheadedness. HR dropped
to high 30s for a short period of time and has been in and out of AFIB on the monitor. Patient now at normal HR. SLITTING AND SHIPPING SUPERVISOR added labs regarding new lightheadedness and HR changes.
[2024-07-21 07:22] VITALS: BP 104/70
[2024-07-21] MEDS: COLACE 100 MG PO (07:38)
[2024-07-21] MEDS: WELLBUTRIN XL (24 hour extended release) 300 MG PO (07:38)
[2024-07-21] MEDS: MIRALAX 17 GRAMS PO (07:38)
--- NOTE | 2024-07-21 07:54 | W.PN.GYN.DG ---
Today's Communication / Plan
-
Frozen section + carcinoma - await final pathology
PT to f/u with oncology re chemo tx - planned as out pt
Likely chemo followed by debulking surgery
Gave pt copy of genetic screen done last month at [facility] - was negative for mutation
Ok to d/c to home from rolling chair pusher standpoint
Assessment / Plan
-
Assessment: Carcinomatosis - s/p Robotic LPS by Beverly yesterday
Suspected Ovarian Cancer
Plan:
Frozen section + carcinoma - await final pathology
PT to f/u with oncology re chemo tx - planned as out pt
Likely chemo followed by debulking surgery
Gave pt copy of genetic screen done last month at [facility] - was negative for mutation
Ok to d/c to home from rolling chair pusher standpoint
Subjective / Objective Data
Subjective Data
S/P LPS yesterday - pt aware of diagnosis - has talked with rolling chair pusher onc and heme onc this am
Objective Data
Vital Signs
Temp Pulse Resp BP Pulse Ox
98.1 F 76 16 104/70 98
07/21/24 07:22 07/21/24 07:22 07/21/24 07:22 07/21/24 07:22 07/21/24 07:22
Intake & Output
07/20/24 07/21/24 07/22/24
06:59 06:59 06:59
Intake Total 940 / 940 340 / 340
Output Total 150 / 150
Balance 940 / 940 190 / 190
Intake:
Oral fluids 840 / 840 240 / 240
IV fluids (Total) 100 / 100
Normosol 100 / 100
IV piggybacks 100 / 100
Output:
Urine, Luis 150 / 150
Other:
Number of approximated MODERATE 4 2
amounts of urine
Data Reviewed
-
Urine Color Deana 07/18/24 16:09
Urine Clarity Slightly cloudy (Clear) 07/18/24 16:09
Urine pH 6.0 (5.0-9.0) 07/18/24 16:09
Ur Specific [place] 1.030 (<1.030) 07/18/24 16:09
Urine Ketones Negative (Negative) 07/18/24 16:09
Urine Bilirubin Negative (Negative) 07/18/24 16:09
Urine Urobilinogen 1+ (Neg - 1+) 07/18/24 16:09
[2024-07-21 08:02] LABS: % Basophils 0.1 % (0-2); % Immature Granulocytes 0.4 % (0-0.5); % Lymphocytes 6.1 % (20.5-51.1); % Neutrophils 87.4 % (42.2-75.2); Absolute Immature Granulocytes 0.1 10^3/uL (0-0.05); Absolute Lymphocytes 0.9 10^3/uL (1.2-3.4); Absolute Monocytes 0.9 10^3/uL (0.1-0.6); Absolute Neutrophils 12.4 10^3/uL (1.4-6.5); Hematocrit 35.3 % (37.0-47.0); Hemoglobin 11.4 g/dL (12.0-16.0); Mean Corp Hgb Conc. 32.3 g/dL (33.0-37.0); Mean Corpuscular Hgb 29.7 pg (27.0-31.0); Mean Corpuscular Volume 91.9 fL (81.0-99.0); Mean Platelet Volume 10.7 fL (7.4-10.4); Nucleated Red Blood Cells % 0 %; Platelet Count 382 10^3/uL (130-400); Red Blood Cell Count 3.84 10^6/uL (4.20-5.40); Red Cell Dist. Width 12.5 % (11.5-14.5); White Blood Cell Count 14.2 10^3/uL (4.8-10.8)
--- NOTE | 2024-07-21 08:16 | W.PN.HOSP.TC ---
Today's Communication/Plan
-
Discharge planning today
Assessment / Plan
Assessment / Plan
Physical exam:
General: Well Developed, Well Nourished and No Apparent Distress
HEENT: Normocephalic, Atraumatic and Moist Mucous Membranes
Respiratory: Clear to Auscultation; Negative Wheezes, Rales or Rhonchi
Cardiac: Regular Rhythm and S1/S2
GI: Soft, postop findings, nontender and Nondistended
Musculoskeletal: No Clubbing, No Cyanosis and No Edema
Neuro: Awake, Alert and Oriented
Psych: Calm
A/P:
Abdominal pain due to ovarian masses (right ovarian mass and hemorrhagic cyst in the left ovary), peritoneal carcinomatosis, and ascites:
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
Oncology consult evaluation today appreciated
She will be taken to the OR today
Appreciated surgery evaluation
Appreciated oncology [employer] ON CALL evaluation
Reviewed pelvic MRI findings
On regular diet
Stopped antibiotics again
Ca-125 elevated at 400
Discussed with today
Plan to discharge-patient prefers tramadol rather than Oxy upon discharge
Preop eval:
EKG unremarkable
[facility] ON CALL oncology requested cardiology preop eval
She seems to be very low risk from my assessment although I understand she had a history of cardiomyopathy. She is currently euvolemic and chest pain-free and no contraindications to surgery.
Echocardiogram also overall unremarkable except for mild valvulopathy.
Leukocytosis:
Likely reactive
Anemia:
Monitor hemoglobin closely
Anxiety
Continue Wellbutrin when able to take oral
DVT prophylaxis:
SCDs
Code Status:
Full Code
Anticipated Discharge: Today
Subjective/Interval History
-
Date of Service: July 21, 2024
Patient with no new complaints
Objective Data
-
Labs:
Laboratory Results
07/21/24
06:52
WBC 14.2 H
Hgb 11.4 L
Hct 35.3 L
Plt Count 382
Sodium Pending
Potassium Pending
Chloride Pending
Carbon Dioxide Pending
BUN Pending
Creatinine Pending
Glucose Pending
Calcium Pending
Vital Signs:
Vital Signs
Temp Pulse Resp BP Pulse Ox
98.1 F 76 16 104/70 98
07/21/24 07:22 07/21/24 07:22 07/21/24 07:22 07/21/24 07:22 07/21/24 07:22
I&O
07/20/24 07/21/24 07/22/24
06:59 06:59 06:59
Intake Total 940 / 940 340 / 340
Output Total 150 / 150
Balance 940 / 940 190 / 190
--- NOTE | 2024-07-21 08:39 | W.PN.ONC2 ---
Today's Communication / Plan
-
See above. Discussed chemotherapy. Stable from my perspective for discharge home.
Chemotherapy being set up for next week.
Impression
Impression
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
Plan
Plan
Long conversation with her and her regarding neoadjuvant chemotherapy.
I am recommending carboplatin + paclitaxel + bevacizumab x 4 cycles followed by restaging and eventual surgery.
Long conversation with her and her regarding potential protocol and toxicities lasting 40 minutes.
Arrange for outpatient evaluation next week to initiate treatment following Port-A-Cath placement.
Subjective/Objective
Chief Complaint
ACS Heme Onc
Subjective
Asked to see patient today from medical oncology perspective. Patient underwent exploratory laparoscopy by Dr. Paul yesterday was found to have extensive intra-abdominal carcinomatosis not amenable to primary debulking. Dr. Paul talk to me
about neoadjuvant chemotherapy and asked me to see the patient today which I did. Long conversation with her about the rationale of neoadjuvant treatment as well as the protocol and side effects. Her Akash was on the cell phone during the
conversation. She is feeling better with less nausea following removal of ascites.
Vital Signs:
Vital Signs
Temp Pulse Resp BP Pulse Ox
98.1 F 76 16 104/70 98
07/21/24 07:22 07/21/24 07:22 07/21/24 07:22 07/21/24 07:22 07/21/24 07:22
Lab Results:
Laboratory Data
WBC 14.2 10^3/uL (4.8-10.8) H 07/21/24 06:52
Hgb 11.4 g/dL (12.0-16.0) L 07/21/24 06:52
Plt Count 382 10^3/uL (130-400) 07/21/24 06:52
eGFR > 60.00 07/20/24 06:54
Physical Exam
HEENT: No Jaundice
Cardiology: S1 and S2
Pulmonary: Clear
[2024-07-21 08:44] LABS: Blood Urea Nitrogen 13 mg/dl (7-17); Calcium 8.8 mg/dl (8.4-10.2); Carbon Dioxide 25 mmol/L (22-30); Chloride 107 mmol/L (98-107); Estimated Creatinine Clearance 83 ml/min; Glucose 117 mg/dl (70-99); Potassium 4.5 mmol/L (3.5-5.1); Sodium 142 mmol/L (135-145); eGFR > 60.00
[2024-07-21] MEDS: ROXICODONE 5 MG PO (10:09)
--- NOTE | 2024-07-21 10:30 | W.DCSUMMARY ---
Discharge Summary
Discharge Data
Date of Admission: 07/20/24
Date of Discharge: 07/21/24
-
Pending Results: No
Hospital Course
Patient 44 years old female G3, P2, came into the hospital abdominal pain. Patient had several abnormalities in her images of the abdomen and pelvis and RUG INSPECTOR consulted. After more images ultimately oncology RUG INSPECTOR was consulted and oncology. She
underwent robotic assisted laparoscopic exploration of the abdomen, peritoneal biopsies including right diaphragm, right lower quadrant and cecal mass, omental biopsies, aspiration of ascites, dilation and curettage on 07/20/2024. RUG INSPECTOR was not able to
do primary debulking due to extensive intra-abdominal carcinomatosis. General surgery evaluated her for appendix but there was no evidence of appendicitis. Postop she did well. She will follow-up with oncology as outpatient for neoadjuvant
chemotherapy. She will be discharged in relatively stable condition today.
Discharge duration: 35 minutes
Discharge Plan
-
Patient Disposition: Home (Routine Discharge)
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 Anemia. Anxiety.
Condition: Fair
Diet: Regular
Activity: As tolerated
Blood Work: Please PCP to order CBC, BMP within 1 week
Referrals:
Carlita Guadarrama DO [Family Provider] - in less than 1 week
Kirit Paul MD [Active] - in one to two weeks
Adam Villa MD [Active] - in two to four weeks
Prescriptions:
New
polyethylene glycol 3350 17 gram Powder In Packet
17 g PO DAILY 14 Days Qty: 14 0RF
tramadol 50 mg tablet
50 mg PO Q6H PRN (Reason: moderate to severe pain) Qty: 30 0RF
Continued
bupropion HCl [Wellbutrin XL] 150 mg Tablet Extended Release 24 Hr
300 mg PO DAILY
Discharge Orders:
Discharge Patient (As Directed); Ordered 07/21/24
Ordered By: Jeremias Rodarte
Discharge Date and Time
Discharge Date/Time: 07/21/24 12:02
Print Language: SERBIAN
--- NOTE | 2024-07-21 10:39 | CM ---
CM following re: discharge planning.
Reviewed pt's chart, met with pt and pt's Eemrson at bedside. Both pt and her are aware that pt upgraded to inpatient level of care yesterday.
Discharge order noted. Both pt and her are aware and stated he will transport home. Both pt and her are aware that pt will start outpatient chemotherapy next week.
No after care VN services indicated.
D/c plan: home with no after care VN services. to transport.
[2024-07-21 11:08] VITALS: BP 113/64
--- NOTE | 2024-07-21 11:09 | W.PN.UPDATE ---
Update Note
Progress Note Update
Patient tolerated surgery without cardiac complication. No additional cardiac recommendations and will sign off.
[2024-07-22 12:18] LABS: CA 19-9 3 U/mL (<=35)
== END 2024-07-21 12:02 | disposition home or self-care (01) ==
LOC: PACU 22:56
PROVIDERS: Emergency Medicine; Physician Assistant Medical; ATTENDING PHYSICIAN Hospitalist; CONSULT PHYSICIAN Internal Medicine Cardiovascular Disease; CONSULT PHYSICIAN Internal Medicine Hematology & Oncology; CONSULT PHYSICIAN Obstetrics & Gynecology Gynecologic Oncology; CONSULT PHYSICIAN Obstetrics & Gynecology Gynecology; CONSULT PHYSICIAN Radiology Diagnostic Radiology; CONSULT PHYSICIAN Surgery; EMERGENCY PHYSICIAN Emergency Medicine; FAMILY PHYSICIAN Internal Medicine
DX: C78.6 Secondary malignant neoplasm of retroperitoneum and peritoneum (principal); C54.1 Malignant neoplasm of endometrium; C56.3 Malignant neoplasm of bilateral ovaries; D49.0 Neoplasm of unspecified behavior of digestive system
CPT/HCPCS: 49321; 58120; 88305; 88332; 72197; 74177; 76856; 80048; 80053; 81003; 81015; 82105; 82378; 83001; 83615; 83690; 84703; 85025; 85027; 86301; 86304; 87086; 88112; 88331; 88341; 88360; 93005; 93306; 96361; 96374; 96375; 99285; A9575; Q9967

== ENCOUNTER → 2024-07-26 08:26 | Outpatient (REF) | payer OTHER, SELFPAY ==
[2024-07-26 09:00] VITALS: BP 104/70; BP_SYST 83; BMI 23.0
[2024-07-26] MEDS: ANCEF 10 IV (10:32)
[2024-07-26 11:57] VITALS: BP 107/84
== END ==
LOC: RADI 08:26
PROVIDERS: ATTENDING PHYSICIAN Internal Medicine Hematology & Oncology
DX: C56.9 Malignant neoplasm of unspecified ovary (principal)
CPT/HCPCS: 36561; 76937; 77001; 99152; 99153; C1788

== ENCOUNTER 2024-09-01 22:29 | Inpatient (IN) | payer OTHER, SELFPAY ==
[2024-09-01 17:22] VITALS: BP 117/71
[2024-09-01 17:57] LABS: HCG, Serum Qualitative Screen Negative
[2024-09-01 17:58] LABS: Lactic Acid 1.3 mmol/L (0.7-2.0)
[2024-09-01 18:00] VITALS: BP 112/77
[2024-09-01 18:04] LABS: COVID-19 Antigen Negative (Negative)
[2024-09-01 18:05] LABS: ALT (SGPT) 27 U/L (0-35); AST (SGOT) 20 U/L (14-36); Albumin 4.8 g/dl (3.5-5.0); Alkaline Phosphatase 139 U/L (38-126); Blood Urea Nitrogen 14 mg/dl (7-17); Calcium 9.6 mg/dl (8.4-10.2); Carbon Dioxide 26 mmol/L (22-30); Chloride 104 mmol/L (98-107); Glucose 100 mg/dl (70-99); Potassium 4.4 mmol/L (3.5-5.1); Sodium 140 mmol/L (135-145); Total Bilirubin 0.4 mg/dl (0.2-1.3); Total Protein 8.1 g/dl (6.3-8.2); eGFR > 60.00
[2024-09-01 18:12] LABS: % Basophils 0.2 % (0-2); % Eosinophils 0.1 % (0-6); % Immature Granulocytes 3.5 % (0-0.5); % Lymphocytes 9.8 % (20.5-51.1); % Monocytes 9.8 % (1.7-9.3); % Neutrophils 76.6 % (42.2-75.2); Absolute Basophils 0.1 10^3/uL (0-0.2); Absolute Immature Granulocytes 0.8 10^3/uL (0-0.05); Absolute Lymphocytes 2.3 10^3/uL (1.2-3.4); Absolute Monocytes 2.3 10^3/uL (0.1-0.6); Absolute Neutrophils 18.2 10^3/uL (1.4-6.5); Hematocrit 37.4 % (37.0-47.0); Hemoglobin 12.3 g/dL (12.0-16.0); Mean Corp Hgb Conc. 32.9 g/dL (33.0-37.0); Mean Corpuscular Hgb 28.6 pg (27.0-31.0); Mean Platelet Volume 10.4 fL (7.4-10.4); Nucleated Red Blood Cells % 0 %; Platelet Count 216 10^3/uL (130-400); Red Cell Dist. Width 14.5 % (11.5-14.5); White Blood Cell Count 23.8 10^3/uL (4.8-10.8)
[2024-09-01 19:00] VITALS: BP 119/75
[2024-09-01] MEDS: NSS 1000 IV ×2 (19:53→23:22)
--- NOTE | 2024-09-01 19:56 | ED.GENMED ---
History of Present Illness
General
Chief Complaint: Fever
Source: patient and records
Time Seen by Provider: 09/01/24 19:18
History of Present Illness
History of Present Illness:
44-year-old female with past medical history of recently diagnosed ovarian cancer, currently on her second chemotherapy treatment, last treatment this past Friday, presenting to the ER for evaluation after she has had fevers with a Tmax of 102 over
the last 24 hours accompanied with cough and postnasal drip. Patient has been taking Tylenol pretty much [id number] last dose around 1245 this afternoon. No known sick contacts, recent travel or recent antibiotics. She notes that she is
scheduled for another round of chemotherapy on September 14 and then will be having surgery at the [facility] in October. Patient is otherwise denying any chest pain, shortness of breath, palpitations, diaphoresis, abdominal pain,
nausea, vomiting, bowel changes or urinary symptoms. Social history was otherwise noncontributory
Past History
Past History
ED Past Medical History: Cancer and Psychiatric
ED Past Surgical History: Orthopedic and Tonsilectomy
Social History
Tobacco: Non-smoker
Alcohol: None
Drug: None
Personal:
Living: with family
Review of Systems
Review of Systems
All Other Systems: ROS reviewed and negative except as documented in HPI and ROS
Phy Exam
Physical Exam
Physical Exam:
GENERAL: Alert , in no apparent distress
EYE: conjunctiva clear
NECK: Supple
ENT: o/p clr, mmm.
CARDIAC: Tachycardic rate and rhythm between 105 and 115 bpm, no murmur
LUNGS: Clear breath sounds bilaterally, no acute respiratory distress, no wheezes/rales/rhonchi
NEUROLOGICAL: Alert and oriented
SKIN: Hot and clammy, skin intact.
MUSCULOSKELETAL: well perfused.
PSYCH: Normal and appropriate interaction.
Scores
Heart Failure Risk
Heart Failure Risk Score: Not Applicable
Heart Score for Chest Pain Patients
STEMI patient?: Not applicable
Withdrawal Assessment of Alcohol
Withdrawal Assessment Completed?: Not applicable
Sepsis
Sepsis Screening
Sepsis Assessment: Sepsis
Sepsis Screen
Sepsis Screen: Sepsis
Date: 09/02/24
Time: 00:53
Course
Orders/Labs/Results
Orders:
Orders
09/01/24 Breakfast
Regular
At Your Request: Full Participation
09/01/24 17:28
CR Chest - 2 Views Urgent
Comment:
Reason For Exam: cough, fever
09/01/24 17:29
Test Result ONCE
09/01/24 17:35
COVID-19 Antigen Urgent
Source: Nasal Swab
Complete Blood Count/With Diff Urgent
Comprehensive Metabolic Panel Urgent
HCG, Serum Qualitative Screen Urgent
Lactic Acid Urgent
Blood Culture Urgent
AMAN Source: Blood/Venous
Specimen Description:
Influenza A+B Rapid Molecular Urgent
AMAN Source: Nasal Swab
Specimen Description:
09/01/24 19:25
0.9% Sodium Chloride 1000 ml [Nss] 1,000 ml IV BOLUS
09/01/24 19:47
Urinalysis Reflex To Culture Urgent
Date Specimen was Collected: 09/01/24
Time Specimen was Collected: 19:37
Urine Microscopic Reflex Cult Urgent
09/01/24 19:49
0.9% Sodium Chloride 1000 ml [Nss] 1,000 ml IV BOLUS
Acetaminophen [Tylenol] 650 mg PO NOW STA
09/01/24 21:15
Piperacillin/Tazo 3.375 Gram [Zosyn] 3.375 gram in 50 ml IV NOW
Vancomycin [Vancocin] 1,500 mg 0.9% Sodium Chloride 500 ml [Nss] 500 ml IV NOW
09/01/24 21:23
Blood Culture Urgent
AMAN Source: Blood/Venous
Specimen Description:
09/01/24 21:37
Admit/Transfer Patient As Directed
Co-Sign Provider:
Level of Care: Inpatient admission
Assign to:: Telemetry
Physician / Group: veronica
Diagnosis: fever
Reason for Telemetry: Arrhythmia
Date to Stop Telemetry: 09/04/24
Time to Stop Telemetry: 11:00
Reason for Hospitalization: fever
Expected length of stay greater than two midnights?: Yes
ELOS- Estimated Length of Stay in days: 3
I certify the patient meets the requirements for IP care: Yes
PRN Pain Medication Management As Directed
May give lesser potent ordered pain med per pt: Yes
preference::
Protocol:: Medication orders for pain may be administered in a
manner that supports deferring to patient preference
when the pt is:
- Requesting an ordered lesser potent pain medication.
Least to most potent pain medications are defined
as: acetaminophen < NSAID < tramadol < opioids
(morphine, oxycodone, hydromorphone).
- Requesting a lesser dose of the same medication IF
ORDERED.
- Requesting a less intrusive route of administration
if both routes are prescribed by the provider (PO <
IV).
09/01/24 21:38
Code Status As Directed
Resuscitation Status: Full Code
09/01/24 22:41
0.9% Sodium Chloride 1000 ml [Nss] 1,000 ml IV 80 mls/hr
Acetaminophen [Tylenol] 650 mg PO Q4HPRN PRN
Bisacodyl [Dulcolax] 10 mg RECTAL [id number] PRN
Docusate W/Senna [Senokot-S] 1 tablet PO BIDPRN PRN
Polyethylene Glycol Powder [Miralax] 17 grams PO DAILYPRN PRN
VANCOMYCIN Pharmacy to Dose [VANCOCIN Pharmacy to Dose] 1 each Pharmacy To Prepare [Call Pharmacy To Prepare] 0 ml IV PER PROTOCOL
09/01/24 22:41
Activity As Directed
Activity Level: As Tolerated
Vital Signs As Directed
Frequency: Per unit guidelines
DX Deep Vein Thrombosis Video Routine
09/02/24 04:00
Piperacillin/Tazo 3.375 Gram [Zosyn] 3.375 gram in 50 ml IV Q6H
09/02/24 06:00
Complete Blood Count/No Diff IN AM
09/02/24 08:00
Bupropion(24Hr)Extended Releas [WELLBUTRIN XL (24 hour extended release)] 300 mg PO DAILY
09/02/24 18:00
Enoxaparin Sodium [Lovenox] 40 mg SC QPM
09/03/24 06:00
Complete Blood Count/No Diff IN AM
09/04/24 06:00
Complete Blood Count/No Diff IN AM
09/04/24 11:00
DC Protocol for Telemetry ONCE
Abnormal Lab Results
09/01/24 09/01/24
17:35 19:47
WBC 23.8 H 10^3/uL
(4.8-10.8)
MCHC 32.9 L g/dL
(33.0-37.0)
Abs Immat Gran (auto) 0.8 H 10^3/uL
(0-0.05)
Absolute Neuts (auto) 18.2 H 10^3/uL
(1.4-6.5)
Absolute Monos (auto) 2.3 H 10^3/uL
(0.1-0.6)
Immature Gran % 3.5 H %
(0-0.5)
Neutrophils % 76.6 H %
(42.2-75.2)
Lymphocytes % 9.8 L %
(20.5-51.1)
Monocytes % 9.8 H %
(1.7-9.3)
Glucose 100 H mg/dl
(70-99)
Alkaline Phosphatase 139 H U/L
(38-126)
Ur Occult Blood Reflex 1+ A
(Negative)
Urine Bacteria (Reflex) Few A
(Negative)
Urine Albumin (Reflex) 1+ A
(Neg - Trace)
09/01/24 17:35
09/01/24 17:35
Vital Signs
Initial and Last Documented VS:
Initial Vital Signs
Temp Pulse Resp BP Pulse Ox
100.0 F 113 16 117/71 98
09/01/24 17:22 09/01/24 17:22 09/01/24 17:22 09/01/24 17:22 09/01/24 17:22
Last Documented Vital Signs
Temp Pulse Resp BP Pulse Ox
98.6 F 90 16 111/69 99
09/01/24 22:40 09/01/24 22:40 09/01/24 22:40 09/01/24 22:40 09/01/24 22:40
MDM/Problems Addressed
Differential Diagnosis Includes:
- COVID/flu or other viral etiology
- Bacterial pneumonia
- Pulmonary embolism considered given her cancer history
- Urinary tract infection
- Sepsis/bacteremia
- Leukocytosis secondary to Neulasta administration last week
MDM/Problems Addressed:
44-year-old female presenting to the ER for evaluation of fever for the last 24 hours, accompanied with URI-like symptoms. Fever noted here as well as mild tachycardia. Labs do show a leukocytosis with a leftward shift. Chemistry unremarkable.
COVID and flu testing was negative. Will obtain chest x-ray and urinalysis. Cultures ordered. Given patient is immunosuppressed with high fevers plan for admission with IV antibiotics and culture trending/monitoring.
Chronic conditions affecting care: Immunosuppressed
Acute Exacerbation and/or Progression of Chronic Illness: Immunosuppressed
*Radiology
Radiology exam reviewed: preliminary read by ED provider (No acute infiltrates)
*Pulse Oximetry
SaO2: 98
Oxygen Mode of Delivery: Room air
*Clothespin Machine Operator Interpretation
Rate: tachycardiac
Rhythm: sinus
*Critical Care Note
Total Time (30-74mins, 75-104mins- exclusive of procedures): Not Applicable
Data Reviewed
Review of Other/Old Records Reveals: Labs and Records
Patient Management
Discussion with other providers: Hospitalist
Escalation/DeEscalation of care consider admission/obs:
Patient's chest x-ray unremarkable. Given the fact that she is immunosuppressed combined with her lab findings with a leukocytosis with a left shift I do have some concern for infectious etiology versus just leukocytosis secondary to her Neulasta.
Hospitalist team aware and accepts for continued evaluation and treatment. IV antibiotics initiated.
ED Attending Note
-
Portions of this chart may have been created with voice recognition software.� Occasional wrong word or��sound alike� substitutions may have occurred due to the inherent limitations of voice recognition software.
Discharge Plan
Departure
Patient Disposition: Admit
Date of Disposition: 09/01/24
Time of Disposition: 21:17
Presentation/result/management discussed w/ accepting MD/DO: Hospitalist
Discharge Problem:
Fever
Interventions
Interventions:
*Risk Screen - Suicide Last Done: 09/01/24 17:27
*General Assessment Last Done: 09/01/24 17:27
*Neglect/Abuse Screening Last Done: 09/01/24 17:27
*ED- Fall Risk Assessment Last Done: 09/01/24 17:27
*Nursing Disposition Last Done: 09/01/24 22:36
ED- Neurological Assessment Last Done: 09/01/24 18:02
ED-Skin Assessment Last Done: 09/01/24 18:02
Discharge Date and Time
Discharge Date/Time: 09/01/24 22:36
[2024-09-01 19:57] LABS: Urine Albumin 1+ (Neg - Trace); Urine Bilirubin Negative (Negative); Urine Character Clear (Clear); Urine Color Yellow; Urine Glucose Negative (Negative); Urine Ketone Negative (Negative); Urine Leukocyte Negative (Negative); Urine Nitrite Negative (Negative); Urine Occult Blood 1+ (Negative); Urine Urobilinogen Negative (Neg - 1+)
[2024-09-01] MEDS: TYLENOL 650 MG PO (19:57)
[2024-09-01 20:09] LABS: Urine Mucus Many; Urine Squamous Cell >30 /LPF (Few)
[2024-09-01 20:10] LABS: Urine Bacteria Few (Negative); Urine Red Blood Cell 0-2 /HPF (0-2); Urine White Cell 0-2 /HPF (0-5)
[2024-09-01 21:18] VITALS: BMI 23.3
--- NOTE | 2024-09-01 21:18 | HPS.HSE ---
Addendum entered and electronically signed by Satnam Lira DO 09/01/24 22:18:
Patient seen and examined independently. Agree with findings and plan as set forth by ROCHELLE Nguyen.
Patient is a 44y F with recent diagnosis of ovarian cancer / on chemotherapy who presents to ED complaining of fevers / chills since yesterday afternoon. Having 'cold symptoms' of runny nose, congestion, etc for about 3 weeks. Children at home
with similar symptoms 3 weeks ago. Last chemo was once week ago. GCSF post-chemo.
Ass:
Fever / URI
Sepsis secondary to the above
Immunocompromised on Chemotherapy
Ovarian Cancer
Anxiety / Depression
Plan:
Admit for further evaluation and treatment.
Cover with empiric abx pending culture data.
Follow fever curve and monitor for any new / worsening symptoms.
Next chemo scheduled for 09/14 with tentative plans for surgery thereafter.
Original Note:
Family Physician
-
Family Physician: Carlita Guadarrama
Chief Complaint
-
fever
History of Present Illness
44 year old with PMH for anxiety, ovarian cancer on chemo. her last last chemo was on last Friday presenting with runny nose, cough with clear sputum for past three weeks. for past two days, she was noted to have temp of 102. she was taking Tylenol
and her temps were in 100.2. she is complaining of DICKEY. denied dizzy or syncope. denied fever, chills,chest pain, sob. denied abdominal pain,n ,v,d.denied dysuria or hematuria.
patient received Tylenol, normal saline, Zosyn and vanco in ER. admitting for further management.
Medical History
Past Medical History
Past Medical History: Reports Other
Additional Past Medical History:
anxiety
ovarian cancer
Past Surgical History: Reports Tonsilectomy
Social History
Tobacco: Non-smoker
Alcohol: None
Drug: None
Personal:
Living: With Family
Family History
Family History: Not pertinent
Allergies / Home Medications
Allergies reflects when Allergies were last updated in [facility].
Home Medications with original date entered in [facility]
Allergy/Medication List:
Allergies
Allergy/AdvReac Type Severity Reaction Status Date / Time
No Known Allergies Allergy Verified 09/01/24 17:28
Home Medications
acetaminophen 500 mg tablet (Tylenol Extra Strength) 1,000 mg PO BIDPRN PRN mild pain 09/01/24
bupropion HCl 300 mg 24 hr tablet, extended release 300 mg PO DAILY 09/01/24
lidocaine-prilocaine 2.5 %-2.5 % topical cream 1 applic topical DAILYPRN PRN port access 09/01/24
ondansetron HCl 8 mg tablet 8 mg PO Q8H PRN nausea 09/01/24
Review of Systems
-
Constitutional: Reports Fever
EENT: Reports Runny Nose
Respiratory: Reports Cough
Cardiac: Reports No Symptoms
Abdomen/GI: Reports No Symptoms
: Reports No Symptoms
Musculoskeletal: Reports No Symptoms
Skin: Reports No Symptoms
Neurological: Reports No Symptoms
Endocrine: Reports No Symptoms
Hematologic/Lymphatic: Reports No Symptoms
Psych: Reports No Symptoms
Physical Exam
Vital Signs
Vital Signs
Temp Pulse Resp BP Pulse Ox
99.9 F 112 23 119/75 98
09/01/24 19:57 09/01/24 19:45 09/01/24 19:45 09/01/24 19:00 09/01/24 19:58
Physical Exam
General: Well Developed, Well Nourished and No Apparent Distress
HEENT: NormoCephalic, Moist mucous membranes and Atraumatic
Respiratory: Clear
Cardiac: S1/S2 and Regular Rhythm; No Murmur or Rub
GI: Soft, Non Tender, Non Distended and Normal Bowel Sounds; No Organomegaly
Rectal: Deferred by Provider
Musculoskeletal: No Clubbing, No Cyanosis and No Edema
Skin: No Rash
Neuro: AO x 3 and Nonfocal/grossly intact
Psych: Calm
Laboratory Results
-
09/01/24 17:35
09/01/24 17:35
Laboratory Results
Lactic Acid 1.3 mmol/L (0.7-2.0) 09/01/24 17:35
Total Bilirubin 0.4 mg/dl (0.2-1.3) 09/01/24 17:35
AST 20 U/L (14-36) 09/01/24 17:35
ALT 27 U/L (0-35) 09/01/24 17:35
Alkaline Phosphatase 139 U/L (38-126) H 09/01/24 17:35
Data Reviewed
-
Lab Data: Labs Reviewed by me
Impression/Plan
-
#fever unclear cause
-sepsis as evident by wbc 23.8,tachycardia
-UA and COVID negative
-chest x ray pending
-iv vanco and Zosyn continued
-Tylenol prn for fever
-blood culture sent from ER
-fluids continued
#ovarian mass/peritoneal carcinomatosis
-s/p carcinomatosis - s/p Robotic LPS
-plan for Surgery after chemo, her last dose in September
#anxiety
-bupropion continued
#DVT Prophylaxis
-Lovenox
#CODE status
-full code
[2024-09-01] MEDS: ZOSYN 50 IV (21:23)
[2024-09-01] MEDS: VANCOCIN 530 MG IV (21:53)
[2024-09-01 22:40] VITALS: BP 111/69
[2024-09-01 22:48] VITALS: BMI 22.4
[2024-09-01] MEDS: BENADRYL 12.5 MG IV (23:22)
[2024-09-02 03:00] VITALS: BP 111/68
[2024-09-02] MEDS: ZOSYN 50 IV ×4 (04:32→21:25)
[2024-09-02 06:16] LABS: Hematocrit 31.9 % (37.0-47.0); Hemoglobin 10.6 g/dL (12.0-16.0); Mean Corp Hgb Conc. 33.2 g/dL (33.0-37.0); Mean Corpuscular Volume 87.2 fL (81.0-99.0); Mean Platelet Volume 10.6 fL (7.4-10.4); Platelet Count 179 10^3/uL (130-400); Red Blood Cell Count 3.66 10^6/uL (4.20-5.40); Red Cell Dist. Width 14.6 % (11.5-14.5); White Blood Cell Count 22.5 10^3/uL (4.8-10.8)
[2024-09-02 07:00] VITALS: BP 107/68
[2024-09-02] MEDS: WELLBUTRIN XL (24 hour extended release) 300 MG PO (08:20)
--- NOTE | 2024-09-02 08:22 | PHA.VAN.IN ---
Assessment
- Assessment
Renal Function: Unknown baseline (SCr 0.7)
Concomitant Antimicrobials: Zosyn
AUC Dosing Plan
- Dosing Variables
Dosing Weight (kg): 63
Dosing CrCl (ml/min): 95
Vd coefficient (L/kg): 0.7
- Empiric Dosing
Initial / Loading Dose: 1500 mg
Maintenance Regimen: 1000 mg IV Q12H
Estimated AUC (mcg*h/mL): 567
Estimated Peak (mcg*h/mL): 35.9
Estimated Trough (mcg/ml): 14.4
Estimated Half Life (H): 8.3
Plan
- Plan
Monitoring: Consider level when at steady state with current regimen
Pharmacokinetics Vancomycin I
- -
Patient Age: 44
Patient Sex: Female
Vancomycin Day #: 1
Indication: Other
Requesting Provider: ELAINA
Pertinent Antimicrobial Allergies:
NKDA
Height / Weight:
Height 5 ft 6 in
Actual Weight 63.004 kg
Pertinent Past Medical History: ovarian cancer (on chemo)
- Vital Signs / Lab Results
Temp Pulse Resp BP Pulse Ox
99.5 F 95 16 107/68 99
09/02/24 07:00 09/02/24 07:00 09/02/24 07:00 09/02/24 07:00 09/02/24 07:00
Lab Results - Hematology
09/01/24 09/02/24
17:35 05:59
WBC 23.8 H 22.5 H
Lab Results - Chemistry
09/01/24
17:35
BUN 14
Creatinine 0.7
Albumin 4.8
09/01/24
17:35
Lactic Acid 1.3
Lab Results - Urine
09/01/24
19:47
Urine Nitrite (Reflex) Negative
Leukocyte Esterase Rfl Negative
Urine WBC (Reflex) 0-2
Ur Squamous Epith Cells >30
Urine Bacteria (Reflex) Few A
Microbiology Results
09/01/24 17:35 Influenza Types A & B (BRI) - Final
Nasal Swab Negative for Influenza A & B, NAAT
Negative results must be combined with clinical observations
and patient history.
Nucleic Acid Amplification test (NAAT)performed on the
[employer] platform.
[2024-09-02 11:01] VITALS: BP 97/64
[2024-09-02] MEDS: VANCOCIN 200 IV ×2 (11:33→17:06)
[2024-09-02] MEDS: BENADRYL 12.5 MG IV (11:34)
--- NOTE | 2024-09-02 11:56 | W.PN.HOSP.TC ---
Today's Communication/Plan
-
monitor vitals
see plan
Follow fever curve
Continue with empiric antibiotics for now
Follow cultures
Assessment / Plan
Assessment / Plan
General: Well Developed, Well Nourished and No Apparent Distress
HEENT: NormoCephalic, Moist mucous membranes and Atraumatic
Respiratory: Clear
Cardiac: S1/S2 and Regular Rhythm; No Murmur or Rub
GI: Soft, Non Tender, Non Distended and Normal Bowel Sounds
Musculoskeletal: No Edema
Neuro: AO x 3 and Nonfocal/grossly intact
Psych: Calm
fever unclear cause, suspect could be 2/2 recent chemo
-sepsis as evident by wbc 23.8,tachycardia. per patient she did get a medication to boost her bone marrow
-UA and COVID negative
-chest x ray without infiltrate
-iv vanco and Zosyn continue for now
-Tylenol prn for fever
-blood culture pending
-fluids continued
#ovarian mass/peritoneal carcinomatosis
-s/p carcinomatosis - s/p Robotic LPS
-plan for Surgery after chemo, her last dose in September
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
Continue with slow infusion
#anxiety
-bupropion continued
#DVT Prophylaxis
-Lovenox
#CODE status
-full code
Anticipated Discharge: Within 24 hours
Subjective/Interval History
-
Date of Service: September 02, 2024
denies pain
Objective Data
-
Labs:
Laboratory Results
09/02/24
05:59
WBC 22.5 H
Hgb 10.6 L
Hct 31.9 L
Plt Count 179
Vital Signs:
Vital Signs
Temp Pulse Resp BP Pulse Ox
99.8 F 95 17 97/64 98
06/19/25 11:01 09/02/24 11:01 09/02/24 11:01 09/02/24 11:01 09/02/24 11:01
--- NOTE | 2024-09-02 13:01 | CM ---
Patient seen at bedside
IA completed
Explained role of CM
DX: Fever
cont on antibiotic
PMH: anxiety, ovarian cancer on chemo. her last last chemo was on last Friday
Lives in a multi-story home with and 2 sons (10, 14) with 2 steps to enter, flight to bedroom & bathroom
PLOF: Independent
drove self to hospital
Denies DME
Denies VN/Rehab
Denies insecurities
PCP: Carlita Guadarrama
Pharmacy: [address]
PLAN: Home, no needs anticipated
[2024-09-02] MEDS: TYLENOL 650 MG PO (14:55)
[2024-09-02 15:00] VITALS: BP 116/76
[2024-09-02] MEDS: LOVENOX 40 MG SC (17:06)
[2024-09-02 19:00] VITALS: BP 101/68
[2024-09-02 23:00] VITALS: BP 100/75
[2024-09-03 03:00] VITALS: BP 117/72
[2024-09-03] MEDS: ZOSYN 50 IV ×2 (04:14→09:31)
[2024-09-03 04:43] LABS: % Basophils 0.4 % (0-2); % Eosinophils 0.4 % (0-6); % Immature Granulocytes 2.8 % (0-0.5); % Lymphocytes 12.9 % (20.5-51.1); % Monocytes 7.5 % (1.7-9.3); Absolute Basophils 0.1 10^3/uL (0-0.2); Absolute Eosinophils 0.1 10^3/uL (0-0.7); Absolute Immature Granulocytes 0.5 10^3/uL (0-0.05); Absolute Lymphocytes 2.4 10^3/uL (1.2-3.4); Absolute Monocytes 1.4 10^3/uL (0.1-0.6); Absolute Neutrophils 13.9 10^3/uL (1.4-6.5); Hematocrit 29.9 % (37.0-47.0); Mean Corp Hgb Conc. 33.4 g/dL (33.0-37.0); Mean Corpuscular Hgb 29.6 pg (27.0-31.0); Mean Corpuscular Volume 88.5 fL (81.0-99.0); Mean Platelet Volume 10.9 fL (7.4-10.4); Nucleated Red Blood Cells % 0 %; Platelet Count 168 10^3/uL (130-400); Red Blood Cell Count 3.38 10^6/uL (4.20-5.40); Red Cell Dist. Width 14.6 % (11.5-14.5); White Blood Cell Count 18.3 10^3/uL (4.8-10.8)
[2024-09-03 05:06] LABS: Blood Urea Nitrogen 11 mg/dl (7-17); Calcium 8.7 mg/dl (8.4-10.2); Carbon Dioxide 24 mmol/L (22-30); Chloride 111 mmol/L (98-107); Estimated Creatinine Clearance 95 ml/min; Glucose 102 mg/dl (70-99); Sodium 143 mmol/L (135-145); eGFR > 60.00
[2024-09-03 05:10] LABS: Procalcitonin 0.11 ng/ml (0.0-0.25)
[2024-09-03] MEDS: VANCOCIN 200 IV (06:00)
[2024-09-03 07:44] VITALS: BP 106/76
--- NOTE | 2024-09-03 07:57 | PHA.VAN.FU ---
Vancomycin Assessment / Plan
- Assessment
Renal Function: Stable
WBC's are: Trending Down (18.3 from 22.5 yesterday)
In the past 24 hrs, patient has been: Febrile (Tmax 101.6F 09/02 @1500)
Concomitant Antimicrobials: Zosyn
- Dosing Plan
Continue: Vancomycin 1000mg IV Q12H
- Monitoring Plan
Peak Level: 09/03/24 @2100
Trough Level: 09/04/24 @0530
- Follow Up
Pharmacy will continue to follow.
Vancomycin Follow UP
- -
Patient Age: 44
Patient Sex: Female
Vancomycin Day #: 2
Indication: Other
Requesting Provider: ELAINA
Pertinent Antimicrobial Allergies:
NKDA
Height / Weight:
Height 5 ft 6 in
Actual Weight 63.004 kg
Pertinent Past Medical History: ovarian cancer (on chemo)
- Vital Signs / Lab Results
Temp Pulse Resp BP Pulse Ox
98.4 F 77 16 106/76 100
09/03/24 07:44 09/03/24 07:44 09/03/24 07:44 09/03/24 07:44 09/03/24 07:44
Lab Results - Hematology
09/01/24 09/02/24 09/03/24
17:35 05:59 04:11
WBC 23.8 H 22.5 H 18.3 H
Lab Results - Chemistry
09/01/24 09/03/24
17:35 04:11
BUN 14 11
Creatinine 0.7 0.7
Estimated Creat Clear 95
Albumin 4.8
09/01/24
17:35
Lactic Acid 1.3
Microbiology Results
09/01/24 21:23 Blood Culture - Preliminary
Blood/Venous No Growth in 24 hours- Final report to follow
09/01/24 17:35 Blood Culture - Preliminary
Blood/Venous No Growth in 24 hours- Final report to follow
09/01/24 17:35 Influenza Types A & B (BRI) - Final
Nasal Swab Negative for Influenza A & B, NAAT
Negative results must be combined with clinical observations
and patient history.
Nucleic Acid Amplification test (NAAT)performed on the
[employer] platform.
[2024-09-03] MEDS: WELLBUTRIN XL (24 hour extended release) 300 MG PO (08:11)
[2024-09-03 11:15] VITALS: BP 107/71
--- NOTE | 2024-09-03 12:23 | W.PN.HOSP.TC ---
Today's Communication/Plan
-
Monitor vital signs see plan
DC further antibiotics
If afebrile till 3 PM today then potential discharge
Assessment / Plan
Assessment / Plan
General: Well Developed, Well Nourished and No Apparent Distress
HEENT: NormoCephalic, Moist mucous membranes and Atraumatic
Respiratory: Clear
Cardiac: S1/S2 and Regular Rhythm; No Murmur or Rub
GI: Soft, Non Tender, Non Distended and Normal Bowel Sounds
Musculoskeletal: No Edema
Neuro: AO x 3 and Nonfocal/grossly intact
Psych: Calm
fever unclear cause, suspect could be 2/2 recent chemo or viral etiology
-sepsis as evident by wbc 23.8,tachycardia. per patient she did get a medication to boost her bone marrow
-UA and COVID negative
-chest x ray without infiltrate
DC further antibiotics and monitor
-Tylenol prn for fever; if afebrile till 3 PM today then potential discharge with outpatient follow-up. Pro-Kamlesh negative
-blood culture NGTD
#ovarian mass/peritoneal carcinomatosis
-s/p carcinomatosis - s/p Robotic LPS
-plan for Surgery after chemo, her last dose in September
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
Continue with slow infusion
#anxiety
-bupropion continued
#DVT Prophylaxis
-Lovenox
#CODE status
-full code
Anticipated Discharge: Today
Subjective/Interval History
-
Date of Service: September 03, 2024
denies pain
Objective Data
-
Labs:
Laboratory Results
09/03/24
04:11
WBC 18.3 H
Hgb 10.0 L
Hct 29.9 L
Plt Count 168
Sodium 143
Potassium 4.0
Chloride 111 H
Carbon Dioxide 24
BUN 11
Creatinine 0.7
Glucose 102 H
Calcium 8.7
Vital Signs:
Vital Signs
Temp Pulse Resp BP Pulse Ox
98.3 F 83 16 107/71 100
09/03/24 11:15 09/03/24 11:15 09/03/24 11:15 09/03/24 11:15 09/03/24 11:15
I&O
09/02/24 09/03/24 09/04/24
06:59 06:59 06:59
Intake Total 880 / 880
Balance 880 / 880
--- NOTE | 2024-09-03 14:23 | CM ---
Patient seen at bedside
per note - If afebrile till 3 PM today then potential discharge
n/a IMM
Returned call from Rhea Gonzalez from [facility] & updated - will follow patient
no needs
PLAN: Home, no needs
drove self to hospital
--- NOTE | 2024-09-03 15:14 | W.DCSUMMARY ---
Discharge Summary
Discharge Data
Date of Admission: 09/01/24
Date of Discharge: 09/03/24
-
Pending Results: Yes
Hospital Course
44-year-old female with past medical history of ovarian mass/peritoneal carcinomatosis status post robotic surgery, anxiety came to the hospital with a fever concerning for infection. Patient met sepsis criteria on admission however leukocytosis
was thought was secondary to medication patient got after chemotherapy. Chest x-ray did not show any infiltrate. Procalcitonin was also checked which was negative. Blood cultures were also negative up until discharge. Patient was initially
febrile however continued to improve. Since procalcitonin was negative and no clear source of fever, antibiotics was then discontinued. Over time patient symptoms continue to get better and she was discharged home with instructions to follow-up
closely with PCP and oncology outpatient.
Discharge Plan
-
Patient Disposition: Home (Routine Discharge)
Discharge Diagnosis/Procedures: Fever
ovarian mass/peritoneal carcinomatosis currently on chemotherapy
Condition: Fair
Diet: As tolerated
Activity: As tolerated
Driving Restrictions: As prior to admission
Bathing Restrictions: None
Blood Work: CBC next week with pcp or oncology
Activity Restrictions/Additional Instructions:
PLEASE FOLLOW UP WITH BLOOD CULTURE RESULTS BY YOUR PCP
Referrals:
Carlita Guadarrama, DO [Family Provider, Internal Medicine] - in less than 1 week
Prescriptions:
Continued
ondansetron HCl 8 mg Tablet
8 mg PO Q8H PRN (Reason: nausea)
acetaminophen [Tylenol Extra Strength] 500 mg Tablet
1,000 mg PO BIDPRN PRN (Reason: mild pain)
lidocaine-prilocaine 2.5-2.5 % Cream
1 applic TOPICAL DAILYPRN PRN (Reason: port access)
Rx Instructions:
used when accessing port for chemo.
bupropion HCl 300 mg tablet extended release 24 hr
300 mg PO DAILY
Discharge Orders:
Discharge Patient (As Directed); Ordered 09/03/24
Ordered By: Cruz Duong
Discharge Date and Time
Discharge Date/Time: 09/03/24 16:32
Print Language: NORWEGI[place]
[2024-09-03 15:31] VITALS: BP 123/81
== END 2024-09-03 16:32 | disposition home or self-care (01) | DRG 872 ==
LOC: 3 WEST ACU 22:29
PROVIDERS: Physician Assistant Medical; Registered Nurse; ADMITTING PHYSICIAN Hospitalist; ATTENDING PHYSICIAN Internal Medicine; EMERGENCY PHYSICIAN Student in an Organized Health Care Education/Training Program; FAMILY PHYSICIAN Internal Medicine
DX: A41.9 Sepsis, unspecified organism (principal); C56.9 Malignant neoplasm of unspecified ovary; C78.6 Secondary malignant neoplasm of retroperitoneum and peritoneum; D84.821 Immunodeficiency due to drugs; T45.1X5A Adverse effect of antineoplastic and immunosuppressive drugs, initial encounter; F32.A Depression, unspecified; F41.9 Anxiety disorder, unspecified; Z11.52 Encounter for screening for COVID-19
CPT/HCPCS: 71046; 80048; 80053; 81003; 81015; 83605; 84145; 84703; 85025; 85027; 87040; 87502; 87811; 96361; 96375; 99285